=== PATIENT | male | born 1970 | race Caucasian/White ===

== ENCOUNTER 2022-05-29 15:32 | Inpatient (IN) | payer BC, SELFPAY ==
[2022-05-29] VITALS (36 sets, daily range): BP systolic 125–170; BP diastolic 86–112; PULSE 55–74; RESP 20; TEMP 36; O2SAT 87–99; BMI 30.3
[2022-05-29] MEDS: 0.9 % SODIUM CHLORIDE 1000 ml 1,000 ML IV (16:43)
[2022-05-29] MEDS: ONDANSETRON 2 MG/ML inj 4 MG IVP ×2 (16:48→18:50)
[2022-05-29] MEDS: LORazepam 2 MG/ML inj 1 MG IVP ×2 (16:49→20:47)
[2022-05-29 16:59] LABS: Basophils Absolute Auto 0.05 K/uL (0.00-0.30); Basophils Percent Auto 0.5 % (0.0-3.0); Eosinophils Absolute Auto 0.03 K/uL (0.00-0.50); Eosinophils Percent Auto 0.3 % (0.0-7.0); Hematocrit 40.7 % (37.0-53.0); Hemoglobin* 15.6 gm/dL (13.5-17.5); Immature Granulocytes Pct Auto 0.9 %; Lymphocytes Percent Auto 10.4 % (20-44); Mean Corpuscular HGB Conc 38 gm/dL (32-36); Mean Corpuscular Hemoglobin 42 pg (26-34); Mean Corpuscular Volume 111 fL (80-100); Monocytes Percent Auto 5.9 % (0.0-11.0); Platelet Count* 239 K/uL (140-440); RDW Coefficient of Variation % 11.6 % (11.5-15.5); White Blood Count* 10.95 K/uL (4.50-11.00)
[2022-05-29 17:10] LABS: Albumin* 4.5 g/dL (3.3-5.0); Chloride* 85 mmol/L (96-114); Sodium* 125 mmol/L (135-149)
[2022-05-29 17:13] LABS: Alkaline Phosphatase* 219 U/L (40-150); Aspartate Amino Transferase* 198 U/L (12-35); Bilirubin Direct* 1.9 mg/dL (0.0-0.5); Bilirubin Total* 4.6 mg/dL (0.1-1.5); Carbon Dioxide* 29 mmol/L (20-32); Creatinine* 0.6 mg/dL (0.5-1.5); Est. Creatinine Clearance* 142.38; Estimated Glomerular Filt Rate 115 ml/min; Total Protein* 8.2 g/dL (6.0-8.3)
[2022-05-29 17:14] LABS: Alanine Aminotransferase* 83 U/L (4-50); Blood Urea Nitrogen* 9 mg/dL (7-30); Calcium* 8.8 mg/dL (8.4-10.6); Glucose* 106 mg/dL (60-115); Lipase* 283 U/L (23-300)
[2022-05-29 17:16] LABS: C Reactive Protein* 3.3 mg/dL (0.5-1.0)
[2022-05-29 17:18] LABS: PCR FLU A Negative PCR FLU A (Negative); PCR FLU B Negative PCR FLU B (Negative); PCR RSV Negative PCR RSV (Negative)
[2022-05-29 17:23] LABS: SARS PCR* Negative SARS-CoV-2 (Negative)
[2022-05-29 17:24] LABS: Acetaminophen* < 10.0 ug/mL (10.0-30.0); Ethanol* < 0.01 % (0.01-0.03); Potassium* 2.6 mmol/L (3.6-5.1); Salicylate* < 1.0 mg/dL (1.0-10)
[2022-05-29 17:27] LABS: Troponin I* < 0.01 ng/mL (0.01-0.04)
--- NOTE | 2022-05-29 17:30 | CRLHL7_ITS ---
For Patients: As a result of the Century Cures Act, medical imaging exams and procedure reports are released immediately into your electronic medical record. You may view this report before your referring provider. If you have questions, please contact your health care provider. INDICATION: Right upper quadrant abdomen pain. TECHNIQUE: Ultrasound abdomen limited. Sonographic images of the right upper quadrant were obtained using roe-scale and color Doppler images. COMPARISON: CT of abdomen and pelvis from 01/01/2019. FINDINGS: Liver: Heterogeneous echotexture, with increased echogenicity. The medial aspect of the liver is not well visualized, but shows a hypoechoic masslike area. Gallbladder: Layering sludge. The gallbladder wall is mildly thickened measuring 4 mm. Common bile duct: 7 mm. Pancreas: Obscured by overlying bowel gas. Right kidney: Normal in size. Normal echotexture and cortex. No suspicious masses, stones, or hydronephrosis. Vasculature: Proximal abdominal aorta and IVC are unremarkable. IMPRESSION: 1. Heterogeneous appearance of the liver, with masslike appearance medially. This would be better evaluated with CT of the abdomen and pelvis with contrast. 2. Gallbladder sludge and mildly thickened gallbladder wall. No pericholecystic fluid. Dictated by Noman Lopez MD @ 05/29/2022 6:28:56 PM (Electronically Signed)
--- NOTE | 2022-05-29 17:31 | ED.NURSE ---
dr hayden aware of critical potassium of 2.6.
[2022-05-29 17:41] LABS: Slide Review Reflex Yes
[2022-05-29 17:42] LABS: Red Blood Count 3.68 m/uL (4.30-5.90)
[2022-05-29] MEDS: 0.9 % SODIUM CH + KCL 20 mEq/L 1,000 ML 1000 ML IV (17:42)
[2022-05-29 18:21] LABS: Erythrocyte SedimentationRate* 12 mm/hr (2-15)
--- NOTE | 2022-05-29 18:21 | ED_ITS ---
HPI - General Adult General Chief complaint: Alcohol/Intoxication <Sharon Connell MD - Last Filed: 05/29/22 20:11> Stated complaint: Extreme Nausea,Vomiting,Diarrhea <Sharon Connell MD - Last Filed: 05/29/22 20:11> Time Seen by Provider: 05/29/22 16:03 <Sharon Connell MD - Last Filed: 05/29/22 20:11> Source: patient <Sharon Connell MD - Last Filed: 05/29/22 20:11> Mode of arrival: ambulatory <Sharon Connell MD - Last Filed: 05/29/22 20:11> Limitations: no limitations <Sharon Connell MD - Last Filed: 05/29/22 20:11> History of Present Illness HPI narrative: 52-year-old male coming in today complaining of nausea and vomiting. Patient states that last , so 1 week ago, he started feeling nauseated and started vomiting. Patient does have a history of significant alcohol use, drinking approximately 1 L of liquor daily. Because of the nausea vomiting he stop drinking completely on Thursday. He states that the vomiting continues on regular basis. He has eaten anything all day today. He cannot keep anything down including fluids. He denies any fevers or chills. He states that he does have diffuse abdominal discomfort. No diarrhea. No urinary symptoms. No blood in his vomit. He states that he has stopped drinking in the past which resulted in tremens in generalized not feeling well, he denies any seizures in the past. <Sharon Connell MD - Last Filed: 05/29/22 20:11> Related Data Home medications: Home Medications Medication Instructions Recorded Confirmed amlodipine 10 mg tablet 10 mg PO DAILY 05/29/22 05/30/22 ibuprofen 600 mg tablet 600 mg PO Q6H PRN 05/29/22 05/30/22 lisinopril 30 mg tablet 60 mg PO DAILY 05/29/22 05/30/22 venlafaxine 150 mg 150 mg PO DAILY 05/29/22 05/30/22 capsule,extended release 24 hr lansoprazole 30 mg capsule,delayed 30 mg PO BID 05/30/22 05/30/22 release levothyroxine 137 mcg tablet 137 mcg PO DAILY 05/30/22 05/30/22 venlafaxine 75 mg capsule,extended 75 mg PO DAILY 05/30/22 05/30/22 release 24 hr Previous Rx's Medication Instructions Recorded acetaminophen 325 mg tablet 650 mg PO QID PRN #100 tabs 05/31/22 thiamine mononitrate (vit B1) 100 100 mg PO DAILY 30 days #30 tabs 05/31/22 mg tablet (Vitamin B-1 (mononitrate)) <Sharon Connell MD - Last Filed: 05/29/22 20:11> Allergies/adverse reactions: Allergies Allergy/AdvReac Type Severity Reaction Status Date / Time Iodinated Contrast Media Allergy Severe Hives Verified 05/29/22 23:41 <Sharon Connell MD - Last Filed: 05/29/22 20:11> Review of Systems Status of ROS: Reports: 10 or more systems reviewed and unremarkable except as noted in History and below <Sharon Connell MD - Last Filed: 05/29/22 20:11> [facility] Medical History: Medical History (Updated 05/31/22 @ 20:59 by Sonny Juarez MD) Abnormal results of liver function studies Attention deficit disorder Chronic alcoholism Essential hypertension Gastroesophageal reflux disease Generalized anxiety disorder Hepatic steatosis Herniation of intervertebral disc between L4 and L5 Hyperlipidemia Hypothyroidism Obstructive sleep apnea on CPAP <Sharon Connell MD - Last Filed: 05/29/22 20:11> Surgical History: Surgical History Previous back surgery <Sharon Connell MD - Last Filed: 05/29/22 20:11> Social History: Social History Highest level of school completed/degree received: some college, no degree Smoking Status: Former smoker Do you use any of these nicotine containing products: Smokeless Tobacco Second hand tobacco smoke exposure: No How often do you have a drink containing alcohol: 4 or more times a week Alcohol type: hard liquor Alcohol type details: 1 liter vodka daily How many standard drinks containing alcohol do you have on a typical day: 7 to 9 How often do you have six or more drinks on one occasion: Daily or almost daily AUDIT-C Alcohol total score: 11 Non-prescribed substance use: marijuana (any form) Caffeine: Yes service: No <Sharon Connell MD - Last Filed: 05/29/22 20:11> Exam Narrative: Exam Narrative: Overweight patient , appears ill. Alert and oriented x3. Answers questions appropriately. Patient speaks in full sentences without needing to catch his breath. GCS is 15. HEENT: Normocephalic atraumatic. Pupils are equally round reactive to light. Extraocular muscles are intact. Conjunctivae are moist without any icterus noted. Moist mucous membranes. Posterior pharynx is normal. Neck is supple. Patient has some puffiness around his eyes. Cardiovascular: Heart is regular rate and rhythm S1 and S2 are present without any murmurs. Lungs: Clear to auscultation bilaterally no wheezes rhonchi or rales are appreciated. Patient takes deep breaths without any discomfort. Abdomen: Soft and protuberant. He has have a some right upper quadrant and epigastric tenderness. Normal bowel sounds. Extremities: Bilateral lower extremities are without edema. Normal DP and PT pulses. Skin: Well perfused. Warm, dry and intact. <Sharon Connell MD - Last Filed: 05/29/22 20:11> Const: Vital Signs, click to edit/add: Vital Signs - 24 hr 05/29/22 16:04 05/29/22 16:25 05/29/22 16:30 Temperature 96.8 F L Pulse Rate 59 L Pulse Rate [Left P ulse Oximeter] 55 L Respiratory Rate 20 Blood Pressure Blood Pressure [Ri ght Upper Arm] 127/92 H Pulse Oximetry 99 98 87 L Oxygen Delivery Me thod Room Air 05/29/22 16:33 05/29/22 16:45 05/29/22 17:00 Temperature Pulse Rate 58 L 58 L 58 L Pulse Rate [Left P ulse Oximeter] Respiratory Rate Blood Pressure 153/104 H Blood Pressure [Ri ght Upper Arm] Pulse Oximetry 96 98 98 Oxygen Delivery Me thod 05/29/22 17:02 05/29/22 17:03 05/29/22 17:16 Temperature Pulse Rate 65 65 74 Pulse Rate [Left P ulse Oximeter] Respiratory Rate Blood Pressure 170/108 H Blood Pressure [Ri ght Upper Arm] Pulse Oximetry 94 93 97 Oxygen Delivery Nh thod 05/29/22 17:30 05/29/22 17:33 05/29/22 17:34 Temperature Pulse Rate 59 L 62 61 Pulse Rate [Left P ulse Oximeter] Respiratory Rate Blood Pressure 135/88 Blood Pressure [Ri ght Upper Arm] Pulse Oximetry 96 95 95 Oxygen Delivery Me thod 05/29/22 17:45 05/29/22 18:02 05/29/22 18:03 Temperature Pulse Rate 60 60 63 Pulse Rate [Left P ulse Oximeter] Respiratory Rate Blood Pressure 126/112 H Blood Pressure [Ri ght Upper Arm] Pulse Oximetry 98 93 93 Oxygen Delivery Me thod 05/29/22 18:15 05/29/22 18:30 05/29/22 18:34 Temperature Pulse Rate 60 63 Pulse Rate [Left P ulse Oximeter] Respiratory Rate Blood Pressure 145/99 H Blood Pressure [Ri ght Upper Arm] Pulse Oximetry 95 95 Oxygen Delivery Me thod 05/29/22 18:45 05/29/22 19:00 05/29/22 19:02 Temperature Pulse Rate 64 64 69 Pulse Rate [Left P ulse Oximeter] Respiratory Rate Blood Pressure 134/92 H Blood Pressure [Ri ght Upper Arm] Pulse Oximetry 91 93 94 Oxygen Delivery Me thod 05/29/22 19:15 05/29/22 19:30 05/29/22 19:32 Temperature Pulse Rate 65 66 66 Pulse Rate [Left P ulse Oximeter] Respiratory Rate Blood Pressure 145/98 H Blood Pressure [Ri ght Upper Arm] Pulse Oximetry 91 93 92 Oxygen Delivery Me thod 05/29/22 19:45 05/29/22 20:00 05/29/22 20:02 Temperature Pulse Rate 65 67 68 Pulse Rate [Left P ulse Oximeter] Respiratory Rate Blood Pressure 125/97 H Blood Pressure [Ri ght Upper Arm] Pulse Oximetry 91 91 90 Oxygen Delivery Me thod 05/29/22 20:15 05/29/22 20:34 05/29/22 21:03 Temperature Pulse Rate 67 Pulse Rate [Left P ulse Oximeter] Respiratory Rate Blood Pressure 147/93 H 135/97 H Blood Pressure [Ri ght Upper Arm] Pulse Oximetry 88 Oxygen Delivery Me thod 05/29/22 21:32 05/29/22 22:02 05/29/22 22:32 Temperature Pulse Rate Pulse Rate [Left P ulse Oximeter] Respiratory Rate Blood Pressure 138/88 130/89 125/86 Blood Pressure [Ri ght Upper Arm] Pulse Oximetry Oxygen Delivery Me thod 05/29/22 23:02 05/29/22 23:35 05/29/22 23:45 Temperature Pulse Rate 60 60 Pulse Rate [Left P ulse Oximeter] Respiratory Rate Blood Pressure 126/86 Blood Pressure [Ri ght Upper Arm] Pulse Oximetry 90 89 Oxygen Delivery Me thod <Sharon Connell MD - Last Filed: 05/29/22 20:11> Vital Signs, click to edit/add: Vital Signs - 24 hr 05/29/22 16:04 05/29/22 16:25 05/29/22 16:30 Temperature 96.8 F L Pulse Rate 59 L Pulse Rate [Left P ulse Oximeter] 55 L Respiratory Rate 20 Blood Pressure Blood Pressure [Ri ght Upper Arm] 127/92 H Pulse Oximetry 99 98 87 L Oxygen Delivery Me thod Room Air 05/29/22 16:33 05/29/22 16:45 05/29/22 17:00 Temperature Pulse Rate 58 L 58 L 58 L Pulse Rate [Left P ulse Oximeter] Respiratory Rate Blood Pressure 153/104 H Blood Pressure [Ri ght Upper Arm] Pulse Oximetry 96 98 98 Oxygen Delivery Me thod 05/29/22 17:02 05/29/22 17:03 05/29/22 17:16 Temperature Pulse Rate 65 65 74 Pulse Rate [Left P ulse Oximeter] Respiratory Rate Blood Pressure 170/108 H Blood Pressure [Ri ght Upper Arm] Pulse Oximetry 94 93 97 Oxygen Delivery Me thod 05/29/22 17:30 05/29/22 17:33 05/29/22 17:34 Temperature Pulse Rate 59 L 62 61 Pulse Rate [Left P ulse Oximeter] Respiratory Rate Blood Pressure 135/88 Blood Pressure [Ri ght Upper Arm] Pulse Oximetry 96 95 95 Oxygen Delivery Me thod 05/29/22 17:45 05/29/22 18:02 05/29/22 18:03 Temperature Pulse Rate 60 60 63 Pulse Rate [Left P ulse Oximeter] Respiratory Rate Blood Pressure 126/112 H Blood Pressure [Ri ght Upper Arm] Pulse Oximetry 98 93 93 Oxygen Delivery Me thod 05/29/22 18:15 05/29/22 18:30 05/29/22 18:34 Temperature Pulse Rate 60 63 Pulse Rate [Left P ulse Oximeter] Respiratory Rate Blood Pressure 145/99 H Blood Pressure [Ri ght Upper Arm] Pulse Oximetry 95 95 Oxygen Delivery Me thod 05/29/22 18:45 05/29/22 19:00 05/29/22 19:02 Temperature Pulse Rate 64 64 69 Pulse Rate [Left P ulse Oximeter] Respiratory Rate Blood Pressure 134/92 H Blood Pressure [Ri ght Upper Arm] Pulse Oximetry 91 93 94 Oxygen Delivery Me thod 05/29/22 19:15 05/29/22 19:30 05/29/22 19:32 Temperature Pulse Rate 65 66 66 Pulse Rate [Left P ulse Oximeter] Respiratory Rate Blood Pressure 145/98 H Blood Pressure [Ri ght Upper Arm] Pulse Oximetry 91 93 92 Oxygen Delivery Me thod 05/29/22 19:45 05/29/22 20:00 05/29/22 20:02 Temperature Pulse Rate 65 67 68 Pulse Rate [Left P ulse Oximeter] Respiratory Rate Blood Pressure 125/97 H Blood Pressure [Ri ght Upper Arm] Pulse Oximetry 91 91 90 Oxygen Delivery Me thod 05/29/22 20:15 05/29/22 20:34 05/29/22 21:03 Temperature Pulse Rate 67 Pulse Rate [Left P ulse Oximeter] Respiratory Rate Blood Pressure 147/93 H 135/97 H Blood Pressure [Ri ght Upper Arm] Pulse Oximetry 88 Oxygen Delivery Me thod 05/29/22 21:32 05/29/22 22:02 05/29/22 22:32 Temperature Pulse Rate Pulse Rate [Left P ulse Oximeter] Respiratory Rate Blood Pressure 138/88 130/89 125/86 Blood Pressure [Ri ght Upper Arm] Pulse Oximetry Oxygen Delivery Me thod 05/29/22 23:02 05/29/22 23:35 05/29/22 23:45 Temperature Pulse Rate 60 60 Pulse Rate [Left P ulse Oximeter] Respiratory Rate Blood Pressure 126/86 Blood Pressure [Ri ght Upper Arm] Pulse Oximetry 90 89 Oxygen Delivery Me thod <Joe Dias MD - Last Filed: 05/30/22 00:43> Course Course Hospital Course: IV was started and patient received a L of normal saline, Zofran and 1 mg of Ativan. Labs were done which showed elevated LFTs, normal lipase, hyponatremia and hypokalemia. A 2 L was started with 20 mEq of potassium. Abdominal ultrasound performed of the right upper quadrant: Results below. CT of the abdomen was recommended however, patient is allergic to dye so a 4 hour protocol was initiated. 3 L was started with potassium at maintenance rates. Patient received a another dose of Zofran and another dose of 0.5 mg of Ativan for worsening nausea. Admission was initiated: We do not have any beds available at [facility], there are no available beds anywhere in the [facility] that could accept this patient. Therefore patient will remain in the ER for the time being. Care transferred to oncoming physician. <Sharon Connell MD - Last Filed: 05/29/22 20:11> Reevaluation(s) Reevaluation #1: I spoke with WILLIAM who agrees to admit the patient for hyponatremia, hypokalemia, alcohol withdrawal. He will be transferred to [facility] in stable condition. <Joe Dias MD - Last Filed: 05/30/22 00:43> Vital Signs Vital signs: Initial Vital Signs Temperature 96.8 F L 05/29/22 16:04 Temperature Source Temporal Artery Scan 05/29/22 16:04 Pulse Rate 55 L 05/29/22 16:04 Pulse Rhythm 05/29/22 16:04 Pulse Strength 3+ Normal 05/29/22 16:04 Respiratory Rate 20 05/29/22 16:04 Blood Pressure 127/92 H 05/29/22 16:04 Blood Pressure Mean 103 05/29/22 16:04 Blood Pressure Position Sitting 05/29/22 16:04 Pulse Oximetry 99 05/29/22 16:04 Oxygen Delivery Method 05/29/22 16:04 Vital Signs Temperature 96.8 F L 05/29/22 16:04 Pulse Rate 55 L 05/29/22 16:04 Respiratory Rate 20 05/29/22 16:04 Blood Pressure 127/92 H 05/29/22 16:04 Pulse Oximetry 99 05/29/22 16:04 Oxygen Delivery Method 05/29/22 16:04 Temperature 97.4 F L 05/31/22 12:00 Pulse Rate 67 05/31/22 12:00 Respiratory Rate 18 05/31/22 12:00 Blood Pressure 150/102 H 05/31/22 12:00 Pulse Oximetry 95 05/31/22 12:00 Oxygen Delivery Method 05/31/22 12:00 <Sharon Connell MD - Last Filed: 05/29/22 20:11> Initial Vital Signs Temperature 96.8 F L 05/29/22 16:04 Temperature Source Temporal Artery Scan 05/29/22 16:04 Pulse Rate 55 L 05/29/22 16:04 Pulse Rhythm 05/29/22 16:04 Pulse Strength 3+ Normal 05/29/22 16:04 Respiratory Rate 20 05/29/22 16:04 Blood Pressure 127/92 H 05/29/22 16:04 Blood Pressure Mean 103 05/29/22 16:04 Blood Pressure Position Sitting 05/29/22 16:04 Pulse Oximetry 99 05/29/22 16:04 Oxygen Delivery Method 05/29/22 16:04 Vital Signs Temperature 96.8 F L 05/29/22 16:04 Pulse Rate 55 L 05/29/22 16:04 Respiratory Rate 20 05/29/22 16:04 Blood Pressure 127/92 H 05/29/22 16:04 Pulse Oximetry 99 05/29/22 16:04 Oxygen Delivery Method 05/29/22 16:04 Temperature 97.4 F L 05/31/22 12:00 Pulse Rate 67 05/31/22 12:00 Respiratory Rate 18 05/31/22 12:00 Blood Pressure 150/102 H 05/31/22 12:00 Pulse Oximetry 95 05/31/22 12:00 Oxygen Delivery Method 05/31/22 12:00 <Joe Dias MD - Last Filed: 05/30/22 00:43> Medical Decision Making Lab Data Lab results reviewed: Yes I reviewed the patient's lab results <Sharon Connell MD - Last Filed: 05/29/22 20:11> Labs: Lab Results 05/29/22 05/29/22 05/29/22 Range/Units 16:00 16:40 16:40 WBC 10.95 (4.50-11.00) K/uL RBC 3.68 L (4.30-5.90) m/uL Hgb 15.6 (13.5-17.5) gm/dL Hct 40.7 (37.0-53.0) % MCV 111 H (80-100) fL MCH 42 H (26-34) pg MCHC 38 H (32-36) gm/dL RDW Coeff of Vladislav 11.6 (11.5-15.5) % Plt Count 239 (140-440) K/uL Neut % (Auto) 82.0 H (42.0-72.0) % Lymph % (Auto) 10.4 L (20-44) % [place] % (Auto) 5.9 (0.0-11.0) % Eos % (Auto) 0.3 (0.0-7.0) % Baso % (Auto) 0.5 (0.0-3.0) % Neut # (Auto) 9.00 H (1.7-7.0) K/uL Lymph # (Auto) 1.10 (0.90-2.90) K/uL [place] # (Auto) 0.60 (0.00-0.90) K/UL Eos # (Auto) 0.03 (0.00-0.50) K/uL Baso # (Auto) 0.05 (0.00-0.30) K/uL Abs Immat Gran (auto) 0.10 (0.00-0.30) K/uL Imm/Tot Granulo (auto) 0.9 % Diff Slide Review Acceptable Review (Acceptable) ESR 12 (2-15) mm/hr Sodium (135-149) mmol/L Potassium (3.6-5.1) mmol/L Chloride (96-114) mmol/L Carbon Dioxide (20-32) mmol/L BUN (7-30) mg/dL Creatinine (0.5-1.5) mg/dL Estimated Creat Clear Estimated GFR ml/min Glucose (60-115) mg/dL Lactate (0.5-1.9) mmol/L Calcium (8.4-10.6) mg/dL Phosphorus (2.5-4.5) mg/dL Magnesium (1.5-2.6) mg/dL Total Bilirubin (0.1-1.5) mg/dL Direct Bilirubin (0.0-0.5) mg/dL AST (12-35) U/L ALT (4-50) U/L Alkaline Phosphatase (40-150) U/L Troponin I (0.01-0.04) ng/mL C-Reactive Protein (0.5-1.0) mg/dL Total Protein (6.0-8.3) g/dL Albumin (3.3-5.0) g/dL Lipase (23-300) U/L Urine Color (Yellow) Urine Appearance (Clear) Urine pH (5.0-8.5) Ur Specific [place] (1.000-1.030) Urine Protein (Negative) Urine Glucose (UA) (Negative) Urine Ketones (Negative) Urine Blood (Negative) Urine Nitrite (Negative) Urine Bilirubin (Negative) Urine Urobilinogen (0.2-1.0) Ur Leukocyte Esterase (Negative) Urine RBC (0-2) Urine WBC (0-5) Ur Squamous Epith Cells (None-Few) Amorphous Sediment (None) Urine Bacteria (None) Salicylates (1.0-10) mg/dL Urine Opiates Screen (Negative) Ur Oxycodone Screen (Negative) Urine Methadone Screen (Negative) Ur Propoxyphene Screen (Negative) Acetaminophen (10.0-30.0) ug/mL Ur Barbiturates Screen (Negative) U Tricyclic Antidepress (Negative) Ur Phencyclidine Scrn (Negative) Ur Amphetamines Screen (Negative) U Methamphetamines Scrn (Negative) U Benzodiazepines Scrn (Negative) Urine Cocaine Screen (Negative) U Marijuana (THC) Screen (Negative) Ur Drug Screen Comment Ethyl Alcohol (0.01-0.03) % SARS-CoV-2 (PCR) Negative SARS-CoV-2 (Negative) Influenza Type A (PCR) Negative PCR FLU A (Negative) Influenza Type B (PCR) Negative PCR FLU B (Negative) RSV (PCR) Negative PCR RSV (Negative) 05/29/22 05/29/22 05/29/22 Range/Units 16:40 16:40 16:40 WBC (4.50-11.00) K/uL RBC (4.30-5.90) m/uL Hgb (13.5-17.5) gm/dL Hct (37.0-53.0) % MCV (80-100) fL MCH (26-34) pg MCHC (32-36) gm/dL RDW Coeff of Vladislav (11.5-15.5) % Plt Count (140-440) K/uL Neut % (Auto) (42.0-72.0) % Lymph % (Auto) (20-44) % [place] % (Auto) (0.0-11.0) % Eos % (Auto) (0.0-7.0) % Baso % (Auto) (0.0-3.0) % Neut # (Auto) (1.7-7.0) K/uL Lymph # (Auto) (0.90-2.90) K/uL [place] # (Auto) (0.00-0.90) K/UL Eos # (Auto) (0.00-0.50) K/uL Baso # (Auto) (0.00-0.30) K/uL Abs Immat Gran (auto) (0.00-0.30) K/uL Imm/Tot Granulo (auto) % Diff Slide Review (Acceptable) ESR (2-15) mm/hr Sodium 125 L (135-149) mmol/L Potassium 2.6 L* (3.6-5.1) mmol/L Chloride 85 L (96-114) mmol/L Carbon Dioxide 29 (20-32) mmol/L BUN 9 (7-30) mg/dL Creatinine 0.6 (0.5-1.5) mg/dL Estimated Creat Clear 142.38 Estimated GFR 115 ml/min Glucose 106 (60-115) mg/dL Lactate 2.0 H (0.5-1.9) mmol/L Calcium 8.8 (8.4-10.6) mg/dL Phosphorus (2.5-4.5) mg/dL Magnesium (1.5-2.6) mg/dL Total Bilirubin 4.6 H (0.1-1.5) mg/dL Direct Bilirubin 1.9 H (0.0-0.5) mg/dL AST 198 H (12-35) U/L ALT 83 H (4-50) U/L Alkaline Phosphatase 219 H (40-150) U/L Troponin I < 0.01 L Cancelled (0.01-0.04) ng/mL C-Reactive Protein 3.3 H (0.5-1.0) mg/dL Total Protein 8.2 (6.0-8.3) g/dL Albumin 4.5 (3.3-5.0) g/dL Lipase 283 (23-300) U/L Urine Color (Yellow) Urine Appearance (Clear) Urine pH (5.0-8.5) Ur Specific [place] (1.000-1.030) Urine Protein (Negative) Urine Glucose (UA) (Negative) Urine Ketones (Negative) Urine Blood (Negative) Urine Nitrite (Negative) Urine Bilirubin (Negative) Urine Urobilinogen (0.2-1.0) Ur Leukocyte Esterase (Negative) Urine RBC (0-2) Urine WBC (0-5) Ur Squamous Epith Cells (None-Few) Amorphous Sediment (None) Urine Bacteria (None) Salicylates < 1.0 L (1.0-10) mg/dL Urine Opiates Screen (Negative) Ur Oxycodone Screen (Negative) Urine Methadone Screen (Negative) Ur Propoxyphene Screen (Negative) Acetaminophen < 10.0 L (10.0-30.0) ug/mL Ur Barbiturates Screen (Negative) U Tricyclic Antidepress (Negative) Ur Phencyclidine Scrn (Negative) Ur Amphetamines Screen (Negative) U Methamphetamines Scrn (Negative) U Benzodiazepines Scrn (Negative) Urine Cocaine Screen (Negative) U Marijuana (THC) Screen (Negative) Ur Drug Screen Comment Ethyl Alcohol < 0.01 L (0.01-0.03) % SARS-CoV-2 (PCR) (Negative) Influenza Type A (PCR) (Negative) Influenza Type B (PCR) (Negative) RSV (PCR) (Negative) 05/29/22 05/29/22 05/29/22 Range/Units 16:40 20:30 20:30 WBC (4.50-11.00) K/uL RBC (4.30-5.90) m/uL Hgb (13.5-17.5) gm/dL Hct (37.0-53.0) % MCV (80-100) fL MCH (26-34) pg MCHC (32-36) gm/dL RDW Coeff of Vladislav (11.5-15.5) % Plt Count (140-440) K/uL Neut % (Auto) (42.0-72.0) % Lymph % (Auto) (20-44) % [place] % (Auto) (0.0-11.0) % Eos % (Auto) (0.0-7.0) % Baso % (Auto) (0.0-3.0) % Neut # (Auto) (1.7-7.0) K/uL Lymph # (Auto) (0.90-2.90) K/uL [place] # (Auto) (0.00-0.90) K/UL Eos # (Auto) (0.00-0.50) K/uL Baso # (Auto) (0.00-0.30) K/uL Abs Immat Gran (auto) (0.00-0.30) K/uL Imm/Tot Granulo (auto) % Diff Slide Review (Acceptable) ESR (2-15) mm/hr Sodium (135-149) mmol/L Potassium (3.6-5.1) mmol/L Chloride (96-114) mmol/L Carbon Dioxide (20-32) mmol/L BUN (7-30) mg/dL Creatinine (0.5-1.5) mg/dL Estimated Creat Clear Estimated GFR ml/min Glucose (60-115) mg/dL Lactate (0.5-1.9) mmol/L Calcium (8.4-10.6) mg/dL Phosphorus (2.5-4.5) mg/dL Magnesium 1.9 (1.5-2.6) mg/dL Total Bilirubin (0.1-1.5) mg/dL Direct Bilirubin (0.0-0.5) mg/dL AST (12-35) U/L ALT (4-50) U/L Alkaline Phosphatase (40-150) U/L Troponin I (0.01-0.04) ng/mL C-Reactive Protein (0.5-1.0) mg/dL Total Protein (6.0-8.3) g/dL Albumin (3.3-5.0) g/dL Lipase (23-300) U/L Urine Color [place] A (Yellow) Urine Appearance Clear (Clear) Urine pH 7.0 (5.0-8.5) Ur Specific [place] 1.015 (1.000-1.030) Urine Protein Negative (Negative) Urine Glucose (UA) Negative (Negative) Urine Ketones 2+ A (Negative) Urine Blood Negative (Negative) Urine Nitrite Negative (Negative) Urine Bilirubin 1+ A (Negative) Urine Urobilinogen 2.0 A (0.2-1.0) Ur Leukocyte Esterase Negative (Negative) Urine RBC 0-2 (0-2) Urine WBC 0-2 (0-5) Ur Squamous Epith Cells Few (None-Few) Amorphous Sediment Few A (None) Urine Bacteria None (None) Salicylates (1.0-10) mg/dL Urine Opiates Screen Negative (Negative) Ur Oxycodone Screen Negative (Negative) Urine Methadone Screen Negative (Negative) Ur Propoxyphene Screen Negative (Negative) Acetaminophen (10.0-30.0) ug/mL Ur Barbiturates Screen Negative (Negative) U Tricyclic Antidepress Negative (Negative) Ur Phencyclidine Scrn Negative (Negative) Ur Amphetamines Screen Negative (Negative) U Methamphetamines Scrn Negative (Negative) U Benzodiazepines Scrn Negative (Negative) Urine Cocaine Screen Negative (Negative) U Marijuana (THC) Screen POSITIVE A* (Negative) Ur Drug Screen Comment See Note Ethyl Alcohol (0.01-0.03) % SARS-CoV-2 (PCR) (Negative) Influenza Type A (PCR) (Negative) Influenza Type B (PCR) (Negative) RSV (PCR) (Negative) 05/30/22 05/30/22 05/30/22 Range/Units 07:06 07:06 07:06 WBC 9.27 (4.50-11.00) K/uL RBC 3.12 L (4.30-5.90) m/uL Hgb 13.5 (13.5-17.5) gm/dL Hct 35.6 L (37.0-53.0) % MCV 114 H (80-100) fL MCH 43 H (26-34) pg MCHC 38 H (32-36) gm/dL RDW Coeff of Vladislav 11.7 (11.5-15.5) % Plt Count 207 (140-440) K/uL Neut % (Auto) 76.3 H (42.0-72.0) % Lymph % (Auto) 16.6 L (20-44) % [place] % (Auto) 6.0 (0.0-11.0) % Eos % (Auto) 0.1 (0.0-7.0) % Baso % (Auto) 0.2 (0.0-3.0) % Neut # (Auto) 7.10 H (1.7-7.0) K/uL Lymph # (Auto) 1.50 (0.90-2.90) K/uL [place] # (Auto) 0.60 (0.00-0.90) K/UL Eos # (Auto) 0.01 (0.00-0.50) K/uL Baso # (Auto) 0.02 (0.00-0.30) K/uL Abs Immat Gran (auto) 0.07 (0.00-0.30) K/uL Imm/Tot Granulo (auto) 0.8 % Diff Slide Review (Acceptable) ESR (2-15) mm/hr Sodium 130 L (135-149) mmol/L Potassium 3.3 L (3.6-5.1) mmol/L Chloride 96 (96-114) mmol/L Carbon Dioxide 26 (20-32) mmol/L BUN 8 (7-30) mg/dL Creatinine 0.6 (0.5-1.5) mg/dL Estimated Creat Clear 142.38 Estimated GFR 115 ml/min Glucose 94 (60-115) mg/dL Lactate 1.2 (0.5-1.9) mmol/L Calcium 7.8 L (8.4-10.6) mg/dL Phosphorus 4.0 (2.5-4.5) mg/dL Magnesium 2.7 H (1.5-2.6) mg/dL Total Bilirubin 2.9 H (0.1-1.5) mg/dL Direct Bilirubin 1.5 H (0.0-0.5) mg/dL AST 144 H (12-35) U/L ALT 76 H (4-50) U/L Alkaline Phosphatase 171 H (40-150) U/L Troponin I (0.01-0.04) ng/mL C-Reactive Protein (0.5-1.0) mg/dL Total Protein 6.9 (6.0-8.3) g/dL Albumin 3.7 (3.3-5.0) g/dL Lipase (23-300) U/L Urine Color (Yellow) Urine Appearance (Clear) Urine pH (5.0-8.5) Ur Specific [place] (1.000-1.030) Urine Protein (Negative) Urine Glucose (UA) (Negative) Urine Ketones (Negative) Urine Blood (Negative) Urine Nitrite (Negative) Urine Bilirubin (Negative) Urine Urobilinogen (0.2-1.0) Ur Leukocyte Esterase (Negative) Urine RBC (0-2) Urine WBC (0-5) Ur Squamous Epith Cells (None-Few) Amorphous Sediment (None) Urine Bacteria (None) Salicylates (1.0-10) mg/dL Urine Opiates Screen (Negative) Ur Oxycodone Screen (Negative) Urine Methadone Screen (Negative) Ur Propoxyphene Screen (Negative) Acetaminophen (10.0-30.0) ug/mL Ur Barbiturates Screen (Negative) U Tricyclic Antidepress (Negative) Ur Phencyclidine Scrn (Negative) Ur Amphetamines Screen (Negative) U Methamphetamines Scrn (Negative) U Benzodiazepines Scrn (Negative) Urine Cocaine Screen (Negative) U Marijuana (THC) Screen (Negative) Ur Drug Screen Comment Ethyl Alcohol (0.01-0.03) % SARS-CoV-2 (PCR) (Negative) Influenza Type A (PCR) (Negative) Influenza Type B (PCR) (Negative) RSV (PCR) (Negative) <Sharon Connell MD - Last Filed: 05/29/22 20:11> Lab Results 05/29/22 05/29/22 05/29/22 Range/Units 16:00 16:40 16:40 WBC 10.95 (4.50-11.00) K/uL RBC 3.68 L (4.30-5.90) m/uL Hgb 15.6 (13.5-17.5) gm/dL Hct 40.7 (37.0-53.0) % MCV 111 H (80-100) fL MCH 42 H (26-34) pg MCHC 38 H (32-36) gm/dL RDW Coeff of Vladislav 11.6 (11.5-15.5) % Plt Count 239 (140-440) K/uL Neut % (Auto) 82.0 H (42.0-72.0) % Lymph % (Auto) 10.4 L (20-44) % [place] % (Auto) 5.9 (0.0-11.0) % Eos % (Auto) 0.3 (0.0-7.0) % Baso % (Auto) 0.5 (0.0-3.0) % Neut # (Auto) 9.00 H (1.7-7.0) K/uL Lymph # (Auto) 1.10 (0.90-2.90) K/uL [place] # (Auto) 0.60 (0.00-0.90) K/UL Eos # (Auto) 0.03 (0.00-0.50) K/uL Baso # (Auto) 0.05 (0.00-0.30) K/uL Abs Immat Gran (auto) 0.10 (0.00-0.30) K/uL Imm/Tot Granulo (auto) 0.9 % Diff Slide Review Acceptable Review (Acceptable) ESR 12 (2-15) mm/hr Sodium (135-149) mmol/L Potassium (3.6-5.1) mmol/L Chloride (96-114) mmol/L Carbon Dioxide (20-32) mmol/L BUN (7-30) mg/dL Creatinine (0.5-1.5) mg/dL Estimated Creat Clear Estimated GFR ml/min Glucose (60-115) mg/dL Lactate (0.5-1.9) mmol/L Calcium (8.4-10.6) mg/dL Phosphorus (2.5-4.5) mg/dL Magnesium (1.5-2.6) mg/dL Total Bilirubin (0.1-1.5) mg/dL Direct Bilirubin (0.0-0.5) mg/dL AST (12-35) U/L ALT (4-50) U/L Alkaline Phosphatase (40-150) U/L Troponin I (0.01-0.04) ng/mL C-Reactive Protein (0.5-1.0) mg/dL Total Protein (6.0-8.3) g/dL Albumin (3.3-5.0) g/dL Lipase (23-300) U/L Urine Color (Yellow) Urine Appearance (Clear) Urine pH (5.0-8.5) Ur Specific [place] (1.000-1.030) Urine Protein (Negative) Urine Glucose (UA) (Negative) Urine Ketones (Negative) Urine Blood (Negative) Urine Nitrite (Negative) Urine Bilirubin (Negative) Urine Urobilinogen (0.2-1.0) Ur Leukocyte Esterase (Negative) Urine RBC (0-2) Urine WBC (0-5) Ur Squamous Epith Cells (None-Few) Amorphous Sediment (None) Urine Bacteria (None) Salicylates (1.0-10) mg/dL Urine Opiates Screen (Negative) Ur Oxycodone Screen (Negative) Urine Methadone Screen (Negative) Ur Propoxyphene Screen (Negative) Acetaminophen (10.0-30.0) ug/mL Ur Barbiturates Screen (Negative) U Tricyclic Antidepress (Negative) Ur Phencyclidine Scrn (Negative) Ur Amphetamines Screen (Negative) U Methamphetamines Scrn (Negative) U Benzodiazepines Scrn (Negative) Urine Cocaine Screen (Negative) U Marijuana (THC) Screen (Negative) Ur Drug Screen Comment Ethyl Alcohol (0.01-0.03) % SARS-CoV-2 (PCR) Negative SARS-CoV-2 (Negative) Influenza Type A (PCR) Negative PCR FLU A (Negative) Influenza Type B (PCR) Negative PCR FLU B (Negative) RSV (PCR) Negative PCR RSV (Negative) 05/29/22 05/29/22 05/29/22 Range/Units 16:40 16:40 16:40 WBC (4.50-11.00) K/uL RBC (4.30-5.90) m/uL Hgb (13.5-17.5) gm/dL Hct (37.0-53.0) % MCV (80-100) fL MCH (26-34) pg MCHC (32-36) gm/dL RDW Coeff of Vladislav (11.5-15.5) % Plt Count (140-440) K/uL Neut % (Auto) (42.0-72.0) % Lymph % (Auto) (20-44) % [place] % (Auto) (0.0-11.0) % Eos % (Auto) (0.0-7.0) % Baso % (Auto) (0.0-3.0) % Neut # (Auto) (1.7-7.0) K/uL Lymph # (Auto) (0.90-2.90) K/uL [place] # (Auto) (0.00-0.90) K/UL Eos # (Auto) (0.00-0.50) K/uL Baso # (Auto) (0.00-0.30) K/uL Abs Immat Gran (auto) (0.00-0.30) K/uL Imm/Tot Granulo (auto) % Diff Slide Review (Acceptable) ESR (2-15) mm/hr Sodium 125 L (135-149) mmol/L Potassium 2.6 L* (3.6-5.1) mmol/L Chloride 85 L (96-114) mmol/L Carbon Dioxide 29 (20-32) mmol/L BUN 9 (7-30) mg/dL Creatinine 0.6 (0.5-1.5) mg/dL Estimated Creat Clear 142.38 Estimated GFR 115 ml/min Glucose 106 (60-115) mg/dL Lactate 2.0 H (0.5-1.9) mmol/L Calcium 8.8 (8.4-10.6) mg/dL Phosphorus (2.5-4.5) mg/dL Magnesium (1.5-2.6) mg/dL Total Bilirubin 4.6 H (0.1-1.5) mg/dL Direct Bilirubin 1.9 H (0.0-0.5) mg/dL AST 198 H (12-35) U/L ALT 83 H (4-50) U/L Alkaline Phosphatase 219 H (40-150) U/L Troponin I < 0.01 L Cancelled (0.01-0.04) ng/mL C-Reactive Protein 3.3 H (0.5-1.0) mg/dL Total Protein 8.2 (6.0-8.3) g/dL Albumin 4.5 (3.3-5.0) g/dL Lipase 283 (23-300) U/L Urine Color (Yellow) Urine Appearance (Clear) Urine pH (5.0-8.5) Ur Specific [place] (1.000-1.030) Urine Protein (Negative) Urine Glucose (UA) (Negative) Urine Ketones (Negative) Urine Blood (Negative) Urine Nitrite (Negative) Urine Bilirubin (Negative) Urine Urobilinogen (0.2-1.0) Ur Leukocyte Esterase (Negative) Urine RBC (0-2) Urine WBC (0-5) Ur Squamous Epith Cells (None-Few) Amorphous Sediment (None) Urine Bacteria (None) Salicylates < 1.0 L (1.0-10) mg/dL Urine Opiates Screen (Negative) Ur Oxycodone Screen (Negative) Urine Methadone Screen (Negative) Ur Propoxyphene Screen (Negative) Acetaminophen < 10.0 L (10.0-30.0) ug/mL Ur Barbiturates Screen (Negative) U Tricyclic Antidepress (Negative) Ur Phencyclidine Scrn (Negative) Ur Amphetamines Screen (Negative) U Methamphetamines Scrn (Negative) U Benzodiazepines Scrn (Negative) Urine Cocaine Screen (Negative) U Marijuana (THC) Screen (Negative) Ur Drug Screen Comment Ethyl Alcohol < 0.01 L (0.01-0.03) % SARS-CoV-2 (PCR) (Negative) Influenza Type A (PCR) (Negative) Influenza Type B (PCR) (Negative) RSV (PCR) (Negative) 05/29/22 05/29/22 05/29/22 Range/Units 16:40 20:30 20:30 WBC (4.50-11.00) K/uL RBC (4.30-5.90) m/uL Hgb (13.5-17.5) gm/dL Hct (37.0-53.0) % MCV (80-100) fL MCH (26-34) pg MCHC (32-36) gm/dL RDW Coeff of Vladislav (11.5-15.5) % Plt Count (140-440) K/uL Neut % (Auto) (42.0-72.0) % Lymph % (Auto) (20-44) % [place] % (Auto) (0.0-11.0) % Eos % (Auto) (0.0-7.0) % Baso % (Auto) (0.0-3.0) % Neut # (Auto) (1.7-7.0) K/uL Lymph # (Auto) (0.90-2.90) K/uL [place] # (Auto) (0.00-0.90) K/UL Eos # (Auto) (0.00-0.50) K/uL Baso # (Auto) (0.00-0.30) K/uL Abs Immat Gran (auto) (0.00-0.30) K/uL Imm/Tot Granulo (auto) % Diff Slide Review (Acceptable) ESR (2-15) mm/hr Sodium (135-149) mmol/L Potassium (3.6-5.1) mmol/L Chloride (96-114) mmol/L Carbon Dioxide (20-32) mmol/L BUN (7-30) mg/dL Creatinine (0.5-1.5) mg/dL Estimated Creat Clear Estimated GFR ml/min Glucose (60-115) mg/dL Lactate (0.5-1.9) mmol/L Calcium (8.4-10.6) mg/dL Phosphorus (2.5-4.5) mg/dL Magnesium 1.9 (1.5-2.6) mg/dL Total Bilirubin (0.1-1.5) mg/dL Direct Bilirubin (0.0-0.5) mg/dL AST (12-35) U/L ALT (4-50) U/L Alkaline Phosphatase (40-150) U/L Troponin I (0.01-0.04) ng/mL C-Reactive Protein (0.5-1.0) mg/dL Total Protein (6.0-8.3) g/dL Albumin (3.3-5.0) g/dL Lipase (23-300) U/L Urine Color [place] A (Yellow) Urine Appearance Clear (Clear) Urine pH 7.0 (5.0-8.5) Ur Specific [place] 1.015 (1.000-1.030) Urine Protein Negative (Negative) Urine Glucose (UA) Negative (Negative) Urine Ketones 2+ A (Negative) Urine Blood Negative (Negative) Urine Nitrite Negative (Negative) Urine Bilirubin 1+ A (Negative) Urine Urobilinogen 2.0 A (0.2-1.0) Ur Leukocyte Esterase Negative (Negative) Urine RBC 0-2 (0-2) Urine WBC 0-2 (0-5) Ur Squamous Epith Cells Few (None-Few) Amorphous Sediment Few A (None) Urine Bacteria None (None) Salicylates (1.0-10) mg/dL Urine Opiates Screen Negative (Negative) Ur Oxycodone Screen Negative (Negative) Urine Methadone Screen Negative (Negative) Ur Propoxyphene Screen Negative (Negative) Acetaminophen (10.0-30.0) ug/mL Ur Barbiturates Screen Negative (Negative) U Tricyclic Antidepress Negative (Negative) Ur Phencyclidine Scrn Negative (Negative) Ur Amphetamines Screen Negative (Negative) U Methamphetamines Scrn Negative (Negative) U Benzodiazepines Scrn Negative (Negative) Urine Cocaine Screen Negative (Negative) U Marijuana (THC) Screen POSITIVE A* (Negative) Ur Drug Screen Comment See Note Ethyl Alcohol (0.01-0.03) % SARS-CoV-2 (PCR) (Negative) Influenza Type A (PCR) (Negative) Influenza Type B (PCR) (Negative) RSV (PCR) (Negative) 05/30/22 05/30/22 05/30/22 Range/Units 07:06 07:06 07:06 WBC 9.27 (4.50-11.00) K/uL RBC 3.12 L (4.30-5.90) m/uL Hgb 13.5 (13.5-17.5) gm/dL Hct 35.6 L (37.0-53.0) % MCV 114 H (80-100) fL MCH 43 H (26-34) pg MCHC 38 H (32-36) gm/dL RDW Coeff of Vladislav 11.7 (11.5-15.5) % Plt Count 207 (140-440) K/uL Neut % (Auto) 76.3 H (42.0-72.0) % Lymph % (Auto) 16.6 L (20-44) % [place] % (Auto) 6.0 (0.0-11.0) % Eos % (Auto) 0.1 (0.0-7.0) % Baso % (Auto) 0.2 (0.0-3.0) % Neut # (Auto) 7.10 H (1.7-7.0) K/uL Lymph # (Auto) 1.50 (0.90-2.90) K/uL [place] # (Auto) 0.60 (0.00-0.90) K/UL Eos # (Auto) 0.01 (0.00-0.50) K/uL Baso # (Auto) 0.02 (0.00-0.30) K/uL Abs Immat Gran (auto) 0.07 (0.00-0.30) K/uL Imm/Tot Granulo (auto) 0.8 % Diff Slide Review (Acceptable) ESR (2-15) mm/hr Sodium 130 L (135-149) mmol/L Potassium 3.3 L (3.6-5.1) mmol/L Chloride 96 (96-114) mmol/L Carbon Dioxide 26 (20-32) mmol/L BUN 8 (7-30) mg/dL Creatinine 0.6 (0.5-1.5) mg/dL Estimated Creat Clear 142.38 Estimated GFR 115 ml/min Glucose 94 (60-115) mg/dL Lactate 1.2 (0.5-1.9) mmol/L Calcium 7.8 L (8.4-10.6) mg/dL Phosphorus 4.0 (2.5-4.5) mg/dL Magnesium 2.7 H (1.5-2.6) mg/dL Total Bilirubin 2.9 H (0.1-1.5) mg/dL Direct Bilirubin 1.5 H (0.0-0.5) mg/dL AST 144 H (12-35) U/L ALT 76 H (4-50) U/L Alkaline Phosphatase 171 H (40-150) U/L Troponin I (0.01-0.04) ng/mL C-Reactive Protein (0.5-1.0) mg/dL Total Protein 6.9 (6.0-8.3) g/dL Albumin 3.7 (3.3-5.0) g/dL Lipase (23-300) U/L Urine Color (Yellow) Urine Appearance (Clear) Urine pH (5.0-8.5) Ur Specific [place] (1.000-1.030) Urine Protein (Negative) Urine Glucose (UA) (Negative) Urine Ketones (Negative) Urine Blood (Negative) Urine Nitrite (Negative) Urine Bilirubin (Negative) Urine Urobilinogen (0.2-1.0) Ur Leukocyte Esterase (Negative) Urine RBC (0-2) Urine WBC (0-5) Ur Squamous Epith Cells (None-Few) Amorphous Sediment (None) Urine Bacteria (None) Salicylates (1.0-10) mg/dL Urine Opiates Screen (Negative) Ur Oxycodone Screen (Negative) Urine Methadone Screen (Negative) Ur Propoxyphene Screen (Negative) Acetaminophen (10.0-30.0) ug/mL Ur Barbiturates Screen (Negative) U Tricyclic Antidepress (Negative) Ur Phencyclidine Scrn (Negative) Ur Amphetamines Screen (Negative) U Methamphetamines Scrn (Negative) U Benzodiazepines Scrn (Negative) Urine Cocaine Screen (Negative) U Marijuana (THC) Screen (Negative) Ur Drug Screen Comment Ethyl Alcohol (0.01-0.03) % SARS-CoV-2 (PCR) (Negative) Influenza Type A (PCR) (Negative) Influenza Type B (PCR) (Negative) RSV (PCR) (Negative) <Joe Dias MD - Last Filed: 05/30/22 00:43> Imaging Data US - abdomen: Attestation: I have reviewed the pertinent imaging results. <Sharon Connell MD - Last Filed: 05/29/22 20:11> Radiologist's impression: Ultrasound abdomen limited. Sonographic images of the right upper quadrant were obtained using roe-scale and color Doppler images. COMPARISON: CT of abdomen and pelvis from 01/01/2019. FINDINGS: Liver: Heterogeneous echotexture, with increased echogenicity. The medial aspect of the liver is not well visualized, but shows a hypoechoic masslike area. Gallbladder: Layering sludge. The gallbladder wall is mildly thickened measuring 4 mm. Common bile duct: 7 mm. Pancreas: Obscured by overlying bowel gas. Right kidney: Normal in size. Normal echotexture and cortex. No suspicious masses, stones, or hydronephrosis. Vasculature: Proximal abdominal aorta and IVC are unremarkable. IMPRESSION: 1. Heterogeneous appearance of the liver, with masslike appearance medially. This would be better evaluated with CT of the abdomen and pelvis with contrast. 2. Gallbladder sludge and mildly thickened gallbladder wall. No pericholecystic fluid. <Sharon Connell MD - Last Filed: 05/29/22 20:11> ECG Data Attestation: I personally reviewed and interpreted this ECG as follows: (Sinus bradycardia, prolonged QT) <Sharon Connell MD - Last Filed: 05/29/22 20:11> Discharge Plan Discharge Condition: Improved <Sharon Connell MD - Last Filed: 05/29/22 20:11> Activity Level: No Restrictions and Activity as Tolerated <Sharon Connell MD - Last Filed: 05/29/22 20:11> No Restrictions and Activity as Tolerated <Joe Dias MD - Last Filed: 05/30/22 00:43> Discharge Diet: Heart Healthy (2 gm sodium, low fat) <Sharon Connell MD - Last Filed: 12/01/22 20:11> Heart Healthy (2 gm sodium, low fat) <Joe Dias MD - Last Filed: 05/30/22 00:43> Prescriptions: New thiamine mononitrate (vit B1) [Vitamin B-1 (mononitrate)] 100 mg Tablet 100 mg PO DAILY 30 Days Qty: 30 0RF acetaminophen 325 mg tablet 650 mg PO QID PRNQty: 100 0RF Rx Instructions: PRN aches and pains Continued venlafaxine 150 mg capsule,extended release 24hr 150 mg PO DAILY Label Comments: TAKE ONE CAPSULE BY MOUTH EVERY DAY ALONG WITH ONE 75 MG CAPSULE amlodipine 10 mg tablet 10 mg PO DAILY lisinopril 30 mg tablet 60 mg PO DAILY Label Comments: TAKE 2 TABLETS BY MOUTH ONCE DAILY venlafaxine 75 mg capsule,extended release 24hr 75 mg PO DAILY Label Comments: TAKE ONE CAPSULE BY MOUTH EVERY DAY ALONG WITH ONE 150 MG CAPSULE lansoprazole 30 mg capsule,delayed release(DR/EC) 30 mg PO BID levothyroxine 137 mcg tablet 137 mcg PO DAILY Held ibuprofen 600 mg tablet 600 mg PO Q6H PRN Hold Instructions: Resume on 06/14/22. May resume as needed use on 06/14/2022 Label Comments: TAKE ONE TABLET BY MOUTH EVERY 6 HOURS NEEDED FOR PAIN <Sharon Connell MD - Last Filed: 05/29/22 20:11> Follow Up/Referrals: Maxwell Peace MD [Primary Care Provider] - <Sharon Connell MD - Last Filed: 05/29/22 20:11>
--- NOTE | 2022-05-29 18:36 | CRLHL7_ITS ---
For Patients: As a result of the Century Cures Act, medical imaging exams and procedure reports are released immediately into your electronic medical record. You may view this report before your referring provider. If you have questions, please contact your health care provider. INDICATION: Liver mass on abdominal ultrasound, right upper quadrant pain TECHNIQUE: CT abdomen and pelvis acquired with 100 cc Isovue 370 IV contrast. COMPARISON: Abdominal ultrasound from earlier today FINDINGS: Lower chest: Patchy opacity in the left lower lobe. Small hiatal hernia. Liver: Hepatic steatosis. Ill-defined areas of hypodensity throughout the liver. Patent portal vein. 1.1 cm lymph node near the joanna hepatis on image 43 series 3. The liver measures 23 cm in length. Spleen: Unremarkable. Pancreas: Unremarkable. Gallbladder and bile ducts: Unremarkable. Adrenal glands: Unremarkable. Kidneys: Unremarkable. GI tract: Unremarkable. Appendix is normal. Vascular structures: Aortoiliac calcifications. Lymph nodes: Unremarkable. Miscellaneous: Small fat containing umbilical hernia. No free air or significant free fluid. Pelvic Organs: Unremarkable. Bones: Unremarkable for age. IMPRESSION: Ill-defined areas of hypodensity in the liver on a background of hepatic steatosis. Hepatomegaly. Borderline lymph node in the joanna hepatis. Recommend MRI liver for further evaluation. Patchy opacity in the left lower lobe may represent atelectasis or infection. Small hiatal hernia. Please note that all CT scans at this facility use dose modulation, iterative reconstruction, and/or weight-based dosing when appropriate to reduce radiation dose to as low as reasonably achievable. Dictated by Sophia Mayes MD @ 05/29/2022 11:50:34 PM (Electronically Signed)
[2022-05-29] MEDS: LORazepam 2 MG/ML inj 0.5 MG IVP (18:53)
[2022-05-29] MEDS: 0.9 % SODIUM CH + KCL 20 mEq/L 1,000 ML 150 ML IV (18:57)
[2022-05-29] MEDS: HYDROCORTISONE SOD SUCCINATE 50 MG/ML inj 200 MG IVP (19:04)
[2022-05-29 19:09] LABS: Magnesium* 1.9 mg/dL (1.5-2.6)
[2022-05-29 20:10] LABS: Slide Review Acceptable Review (Acceptable)
[2022-05-29 20:55] LABS: Appearance Urine Clear (Clear); Bilirubin Urine 1+ (Negative); Blood Urine Negative (Negative); Color Urine Orange (Yellow); Glucose Urine Negative (Negative); Ketones Urine 2+ (Negative); Leukocyte Esterase Urine Negative (Negative); Nitrite Urine Negative (Negative); Protein Urine Negative (Negative); Specific Gravity Urine 1.015 (1.000-1.030)
[2022-05-29 21:22] LABS: Amphetamine Screen Urine Negative (Negative); Barbiturate Screen Urine Negative (Negative); Benzodiazepines Screen Urine Negative (Negative); Cannabinoid Screen Urine POSITIVE (Negative); Cocaine Screen Urine Negative (Negative); Methadone Screen Urine Negative (Negative); Methamphetamines Screen Urine Negative (Negative); Opiate Screen Urine Negative (Negative); Phencyclidine Screen Urine Negative (Negative); Tricyclic Antidepressant Urine Negative (Negative)
[2022-05-29 21:23] LABS: Oxycodone Screen Urine Negative (Negative)
[2022-05-29 21:52] LABS: Amorphous Sediment Urine Few; RBC Urine 0-2 (0-2); Squamous Epithelial Cell Urine Few (None-Few); WBC Urine 0-2 (0-5)
[2022-05-29] MEDS: diphenhydrAMINE 50 MG/ML inj IVP (22:12)
--- NOTE | 2022-05-29 23:59 | W.PC.EDHO ---
Primary Language: Preferred Language: Orientation Status: [x] Alert & Oriented [] Slight Confusion [] Known Dx Dementia Transfers By: [] Assist of 1 [x] Assist of 2 [] Lift Active Medications Generic Name Dose Route Start Last Admin Trade Name Freq PRN Reason Stop Dose Admin Potassium Chloride/Sodium Chloride 1,000 mls @ 0 mls/hr 05/29/22 17:29 05/29/22 18:44 0.9 % Sodium Ch + Kcl 20 Meq/L IV Infused .Q0M JENI Infusion Per Protocol Potassium Chloride/Sodium Chloride 1,000 mls @ 150 mls/hr 05/29/22 18:43 05/29/22 18:57 0.9 % Sodium Ch + Kcl 20 Meq/L IV 150 mls/hr .[id number] JENI Administration Discontinued Medications Generic Name Dose Route Start Last Admin Trade Name Freq PRN Reason Stop Dose Admin Diphenhydramine HCl 50 mg 05/29/22 21:46 05/29/22 22:12 Diphenhydramine 50 Mg/Ml Inj IVP 05/29/22 21:47 50 mg ONCE ONE Administration Hydrocortisone Sodium Succinate 200 mg 05/29/22 18:52 05/29/22 19:04 Hydrocortisone Sod Succinate 50 Mg/Ml Inj IVP 05/29/22 18:53 200 mg ONCE ONE Administration Sodium Chloride 1,000 mls @ 1,000 mls/hr 05/29/22 16:30 05/29/22 17:41 0.9 % Sodium Chloride 1000 Ml IV 05/29/22 17:29 Infused .Q1H JENI Infusion Lorazepam 1 mg 05/29/22 16:20 05/29/22 16:49 Lorazepam 2 Mg/Ml Inj IVP 05/29/22 16:21 1 mg ONCE ONE Administration Lorazepam 0.5 mg 05/29/22 18:42 05/29/22 18:53 Lorazepam 2 Mg/Ml Inj IVP 05/29/22 18:43 0.5 mg ONCE ONE Administration Lorazepam 1 mg 05/29/22 20:38 05/29/22 20:47 Lorazepam 2 Mg/Ml Inj IVP 05/29/22 20:39 1 mg ONCE ONE Administration Ondansetron HCl 4 mg 05/29/22 16:20 05/29/22 16:48 Ondansetron 2 Mg/Ml Inj IVP 05/29/22 16:21 4 mg ONCE ONE Administration Ondansetron HCl 4 mg 05/29/22 18:42 05/29/22 18:50 Ondansetron 2 Mg/Ml Inj IVP 05/29/22 18:43 4 mg ONCE ONE Administration Description of Symptoms ED Triage Present Problem Pt here with nausea/vomiting/diarrhea. Last etoh Description drink was thursday. Previously has been drinking .75 -1L per day. Tremors/headache/sweating noted. No hx of withdrawls. ED Triage Date of Onset of 05/25/22 Symptoms Female History Patient Lamona Coma Scale Lamona coma scale total score 15 Lamona coma scale total score 15 Pain Pain Description [Upper Pressure,Sharp,Dull, Achy Abdomen] Pain Intensity [Upper Abdomen] 5 Pain Intensity 6 Pain Scale Used [Upper Abdomen Numeric (1 - 10) ] Pain Scale Used Numeric (1 - 10) IV Insertion/Site Date of IV Line Insertion [ 05/29/22 Left Forearm] Oxygen Administration Pulse Oximetry 89 Pulse Oximetry 90 Pulse Oximetry 88 Pulse Oximetry 90 Pulse Oximetry 91 Pulse Oximetry 91 Pulse Oximetry 92 Pulse Oximetry 93 Pulse Oximetry 91 Pulse Oximetry 94 Pulse Oximetry 93 Pulse Oximetry 91 Pulse Oximetry 95 Pulse Oximetry 95 Pulse Oximetry 93 Pulse Oximetry 93 Pulse Oximetry 98 Pulse Oximetry 95 Pulse Oximetry 95 Pulse Oximetry 96 Pulse Oximetry 97 Pulse Oximetry 93 Pulse Oximetry 94 Pulse Oximetry 98 Pulse Oximetry 98 Pulse Oximetry 96 Pulse Oximetry 87 Pulse Oximetry 98 Pulse Oximetry 99 Oxygen Delivery Method Room Air Cardiac Monitoring EKG Method 12 Lead
[2022-05-30] VITALS (25 sets, daily range): BP systolic 120–164; BP diastolic 46–104; PULSE 55–89; RESP 16–20; TEMP 36.2–37.1; O2SAT 91–96; BMI 30.6
--- NOTE | 2022-05-30 00:25 | ED.NURSE ---
heel burnisher to rn ms report given
--- NOTE | 2022-05-30 01:30 | PM.IMPN1 ---
Progress Note: A&P Assessment and plan (1) Alcohol withdrawal: Status: Acute (2) Hyponatremia: Status: Acute (3) Hypokalemia: Status: Acute Plan E hospitalist collaboration: I have discussed in detail with ED Dr. Dias. 52-year-old male admitted from the ED for alcohol withdrawal, hyponatremia, hypokalemia. Patient made a decision to stop drinking (he had stopped in the past). His last drink was Thursday. Since then, he has had nausea and vomiting. Vomiting has been nonbloody. He has not been eating or drinking. He has a baseline tremor, but tremors had worsened since he quit drinking. Also some abdominal pain that is not necessarily new for him, but slightly worse and may have been increased with all the vomiting he had done. No chest pain or shortness of breath. No reported fever or chills. No reported melena or hematochezia or dysuria hematuria. Laboratory/imaging in the ED: Ultrasound of the abdomen revealed heterogeneous appearance of the liver and masslike appearance medially and recommended CT for further evaluation, gallbladder sludge and mildly thickened gallbladder but no pericholecystic fluid. CT abdomen pelvis with contrast and he received steroid prep due to contrast dye allergy): Ill-defined hypodensity in the liver on the background of hepatic steatosis and hepatomegaly and borderline lymph node in the portal hepatis and radiology recommends MRI for further characterization. WBC 10.5, hemoglobin 15.6, hematocrit 40.7, MCV 111, platelets 239. Sodium 125, potassium 2.6, chloride 85, CO2 29, BUN 9, creatinine 0.6, glucose 106, calcium 8, magnesium 1.9, total bilirubin 4.6, direct bilirubin 1.9, AST 198, ALT 83, alk phosphatase 219, total protein 8.2, albumin 4.5. Lipase 283. CRP 3.3. Lactic acid 2. Troponin I less than 0.01. Urinalysis 2+ ketones, negative leukocyte esterase, negative nitrite, no bacteria. Alcohol level less than 0.01. Salicylates less than 1. Tylenol less than 10. Urine drug screen negative except for positive for marijuana. COVID-19 negative. Influenza a and B-. RSV negative. Patient was given IV fluids and potassium replacement and Ativan. As mentioned he received steroid prep along with Benadryl prior to CT scan with contrast due to contrast dye allergy. PMH/PSH/allergies/home medication/social history reviewed. Patient's at the bedside mention he did have a TIA in 2009 and has had a baseline tremor since then, when he goes to withdrawal tremors get worse. Hypertension, anxiety/depression. Telemedicine exam: Vitals reviewed No apparent distress, patient is quite sleepy, but he will arouse to verbal prompt and he will be cooperative Follows commands, no lateralizing weakness, neurologically intact, has been tremor both sides hands and arms Pupils equal and reactive to light, no scleral icterus Lips and mouth are dry, tongue midline on protrusion Neck trachea midline Heart regular rate and rhythm, no murmurs Lungs clear bilateral no crackles no wheezes Abdomen bowel sounds are positive, mildly distended which at the bedside feels this is chronic for him, has a umbilical hernia that is soft and reducible for nursing, slightly firm but in general still soft and no evidence of rebound tenderness Lower extremities no pitting edema Skin dry Summary: 52-year-old male admitted from the ED for alcohol withdrawal, hyponatremia, hypokalemia, hyperbilirubinemia/transaminitis, abdomen normal hypodensity in the liver on imaging. Assessment and plan: Alcohol withdrawal Alcohol dependence Hyperbilirubinemia/Transaminitis Abnormal hypodensity liver seen on imaging, hepatic steatosis Hyponatremia Hypokalemia Elevated lactic likely related to alcoholic ketoacidosis Positive THC and drug screen: Plan: Patient did have an elevated lactate but vitals stable and hemodynamically stable, likely alcoholic ketoacidosis, thus far no signs of infection with negative UA/COVID/influenza AMB/RSV. He has not had any chest pain or shortness of breath or cough and LLL atelectasis thus monitor for developing pneumonia. Will repeat lactic acid and monitor vitals. Monitor for fever. Hyponatremia related to volume depletion with the nausea and vomiting, with alcohol must consider cause as well, but more likely related to nausea/vomiting and will have a repeat sodium. Hypokalemia replaced in the ED and will recheck, check a phosphorus, magnesium was 1.9 and with the being under 2 will replace with the hypokalemia. Hyperbilirubinemia and transaminitis likely alcoholic hepatitis related, also explained he has a history of fatty liver so likely acute on chronic, will repeat labs in the a.m., patient is sleepy right now but awakes and follows appropriately with verbal prompts, will hold on checking ammonia at this time but could consider if he has ongoing lethargy but most likely related to recent Benadryl for CT contrast dye allergy. Ultrasound abdomen liver density and recommended CT scan and again hypodensity seen and radiology recommends an MRI and will hold on MRI tonight and discuss in the a.m. Zofran as needed for nausea. Discussed with his at the bedside. Home medication reconciliation to be formally completed in the a.m., would hold his home meds of amlodipine, ibuprofen, lisinopril, venlafaxine at this time and reassess in the a.m. if he can tolerate p.o. intake, if needed will add IV BP medication. CODE STATUS: Full code Please call E hospitalist with questions Subjective Date Seen: 05/30/22 Exam Const: Vital Signs, click to edit/add: Vital Signs - 24 hr 05/29/22 16:04 05/29/22 16:25 05/29/22 16:30 Temperature 96.8 F L Pulse Rate 59 L Pulse Rate [Left P ulse Oximeter] 55 L Respiratory Rate 20 Blood Pressure Blood Pressure [Ri ght Upper Arm] 127/92 H Pulse Oximetry 99 98 87 L Oxygen Delivery Me thod Room Air 05/29/22 16:33 05/29/22 16:45 05/29/22 17:00 Temperature Pulse Rate 58 L 58 L 58 L Pulse Rate [Left P ulse Oximeter] Respiratory Rate Blood Pressure 153/104 H Blood Pressure [Ri ght Upper Arm] Pulse Oximetry 96 98 98 Oxygen Delivery Me thod 05/29/22 17:02 05/29/22 17:03 05/29/22 17:16 Temperature Pulse Rate 65 65 74 Pulse Rate [Left P ulse Oximeter] Respiratory Rate Blood Pressure 170/108 H Blood Pressure [Ri ght Upper Arm] Pulse Oximetry 94 93 97 Oxygen Delivery Me thod 05/29/22 17:30 05/29/22 17:33 05/29/22 17:34 Temperature Pulse Rate 59 L 62 61 Pulse Rate [Left P ulse Oximeter] Respiratory Rate Blood Pressure 135/88 Blood Pressure [Ri ght Upper Arm] Pulse Oximetry 96 95 95 Oxygen Delivery Me thod 05/29/22 17:45 05/29/22 18:02 05/29/22 18:03 Temperature Pulse Rate 60 60 63 Pulse Rate [Left P ulse Oximeter] Respiratory Rate Blood Pressure 126/112 H Blood Pressure [Ri ght Upper Arm] Pulse Oximetry 98 93 93 Oxygen Delivery Me thod 05/29/22 18:15 05/29/22 18:30 05/29/22 18:34 Temperature Pulse Rate 60 63 Pulse Rate [Left P ulse Oximeter] Respiratory Rate Blood Pressure 145/99 H Blood Pressure [Ri ght Upper Arm] Pulse Oximetry 95 95 Oxygen Delivery Me thod 05/29/22 18:45 05/29/22 19:00 05/29/22 19:02 Temperature Pulse Rate 64 64 69 Pulse Rate [Left P ulse Oximeter] Respiratory Rate Blood Pressure 134/92 H Blood Pressure [Ri ght Upper Arm] Pulse Oximetry 91 93 94 Oxygen Delivery Me thod 05/29/22 19:15 05/29/22 19:30 05/29/22 19:32 Temperature Pulse Rate 65 66 66 Pulse Rate [Left P ulse Oximeter] Respiratory Rate Blood Pressure 145/98 H Blood Pressure [Ri ght Upper Arm] Pulse Oximetry 91 93 92 Oxygen Delivery Me thod 05/29/22 19:45 05/29/22 20:00 05/29/22 20:02 Temperature Pulse Rate 65 67 68 Pulse Rate [Left P ulse Oximeter] Respiratory Rate Blood Pressure 125/97 H Blood Pressure [Ri ght Upper Arm] Pulse Oximetry 91 91 90 Oxygen Delivery Me thod 05/29/22 20:15 05/29/22 20:34 05/29/22 21:03 Temperature Pulse Rate 67 Pulse Rate [Left P ulse Oximeter] Respiratory Rate Blood Pressure 147/93 H 135/97 H Blood Pressure [Ri ght Upper Arm] Pulse Oximetry 88 Oxygen Delivery Me thod 05/29/22 21:32 05/29/22 22:02 05/29/22 22:32 Temperature Pulse Rate Pulse Rate [Left P ulse Oximeter] Respiratory Rate Blood Pressure 138/88 130/89 125/86 Blood Pressure [Ri ght Upper Arm] Pulse Oximetry Oxygen Delivery Me thod 05/29/22 23:02 05/29/22 23:35 05/29/22 23:45 Temperature Pulse Rate 60 60 Pulse Rate [Left P ulse Oximeter] Respiratory Rate Blood Pressure 126/86 Blood Pressure [Ri ght Upper Arm] Pulse Oximetry 90 89 Oxygen Delivery Sc thod Labs Labs: Laboratory Results - last 24 hr 05/29/22 05/29/22 05/29/22 16:00 16:40 16:40 WBC 10.95 RBC 3.68 L Hgb 15.6 Hct 40.7 MCV 111 H MCH 42 H MCHC 38 H RDW Coeff of Vladislav 11.6 Plt Count 239 Neut % (Auto) 82.0 H Lymph % (Auto) 10.4 L [place] % (Auto) 5.9 Eos % (Auto) 0.3 Baso % (Auto) 0.5 Neut # (Auto) 9.00 H Lymph # (Auto) 1.10 [place] # (Auto) 0.60 Eos # (Auto) 0.03 Baso # (Auto) 0.05 Abs Immat Gran (auto) 0.10 Imm/Tot Granulo (auto) 0.9 Diff Slide Review Acceptable Review ESR 12 Sodium Potassium Chloride Carbon Dioxide BUN Creatinine Estimated Creat Clear Estimated GFR Glucose Lactate Calcium Magnesium Total Bilirubin Direct Bilirubin AST ALT Alkaline Phosphatase Troponin I C-Reactive Protein Total Protein Albumin Lipase Urine Color Urine Appearance Urine pH Ur Specific [place] Urine Protein Urine Glucose (UA) Urine Ketones Urine Blood Urine Nitrite Urine Bilirubin Urine Urobilinogen Ur Leukocyte Esterase Urine RBC Urine WBC Ur Squamous Epith Cells Amorphous Sediment Urine Bacteria Salicylates Urine Opiates Screen Ur Oxycodone Screen Urine Methadone Screen Ur Propoxyphene Screen Acetaminophen Ur Barbiturates Screen U Tricyclic Antidepress Ur Phencyclidine Scrn Ur Amphetamines Screen U Methamphetamines Scrn U Benzodiazepines Scrn Urine Cocaine Screen U Marijuana (THC) Screen Ur Drug Screen Comment Ethyl Alcohol SARS-CoV-2 (PCR) Negative SARS-CoV-2 Influenza Type A (PCR) Negative PCR FLU A Influenza Type B (PCR) Negative PCR FLU B RSV (PCR) Negative PCR RSV 05/29/22 05/29/22 05/29/22 16:40 16:40 16:40 WBC RBC Hgb Hct MCV MCH MCHC RDW Coeff of [place] Plt Count Neut % (Auto) Lymph % (Auto) [place] % (Auto) Eos % (Auto) Baso % (Auto) Neut # (Auto) Lymph # (Auto) [place] # (Auto) Eos # (Auto) Baso # (Auto) Abs Immat Gran (auto) Imm/Tot Granulo (auto) Diff Slide Review ESR Sodium 125 L Potassium 2.6 L* Chloride 85 L Carbon Dioxide 29 BUN 9 Creatinine 0.6 Estimated Creat Clear 142.38 Estimated GFR 115 Glucose 106 Lactate 2.0 H Calcium 8.8 Magnesium Total Bilirubin 4.6 H Direct Bilirubin 1.9 H AST 198 H ALT 83 H Alkaline Phosphatase 219 H Troponin I < 0.01 L Cancelled C-Reactive Protein 3.3 H Total Protein 8.2 Albumin 4.5 Lipase 283 Urine Color Urine Appearance Urine pH Ur Specific [place] Urine Protein Urine Glucose (UA) Urine Ketones Urine Blood Urine Nitrite Urine Bilirubin Urine Urobilinogen Ur Leukocyte Esterase Urine RBC Urine WBC Ur Squamous Epith Cells Amorphous Sediment Urine Bacteria Salicylates < 1.0 L Urine Opiates Screen Ur Oxycodone Screen Urine Methadone Screen Ur Propoxyphene Screen Acetaminophen < 10.0 L Ur Barbiturates Screen U Tricyclic Antidepress Ur Phencyclidine Scrn Ur Amphetamines Screen U Methamphetamines Scrn U Benzodiazepines Scrn Urine Cocaine Screen U Marijuana (THC) Screen Ur Drug Screen Comment Ethyl Alcohol < 0.01 L SARS-CoV-2 (PCR) Influenza Type A (PCR) Influenza Type B (PCR) RSV (PCR) 05/29/22 05/29/22 05/29/22 16:40 20:30 20:30 WBC RBC Hgb Hct MCV MCH MCHC RDW Coeff of Vladislav Plt Count Neut % (Auto) Lymph % (Auto) [place] % (Auto) Eos % (Auto) Baso % (Auto) Neut # (Auto) Lymph # (Auto) [place] # (Auto) Eos # (Auto) Baso # (Auto) Abs Immat Gran (auto) Imm/Tot Granulo (auto) Diff Slide Review ESR Sodium Potassium Chloride Carbon Dioxide BUN Creatinine Estimated Creat Clear Estimated GFR Glucose Lactate Calcium Magnesium 1.9 Total Bilirubin Direct Bilirubin AST ALT Alkaline Phosphatase Troponin I C-Reactive Protein Total Protein Albumin Lipase Urine Color [place] A Urine Appearance Clear Urine pH 7.0 Ur Specific [place] 1.015 Urine Protein Negative Urine Glucose (UA) Negative Urine Ketones 2+ A Urine Blood Negative Urine Nitrite Negative Urine Bilirubin 1+ A Urine Urobilinogen 2.0 A Ur Leukocyte Esterase Negative Urine RBC 0-2 Urine WBC 0-2 Ur Squamous Epith Cells Few Amorphous Sediment Few A Urine Bacteria None Salicylates Urine Opiates Screen Negative Ur Oxycodone Screen Negative Urine Methadone Screen Negative Ur Propoxyphene Screen Negative Acetaminophen Ur Barbiturates Screen Negative U Tricyclic Antidepress Negative Ur Phencyclidine Scrn Negative Ur Amphetamines Screen Negative U Methamphetamines Scrn Negative U Benzodiazepines Scrn Negative Urine Cocaine Screen Negative U Marijuana (THC) Screen POSITIVE A* Ur Drug Screen Comment See Note Ethyl Alcohol SARS-CoV-2 (PCR) Influenza Type A (PCR) Influenza Type B (PCR) RSV (PCR)
[2022-05-30] MEDS: 0.9 % SODIUM CH + KCL 20 mEq/L 1,000 ML 150 ML IV ×3 (02:45→18:07)
[2022-05-30] MEDS: MAGNESIUM SULFATE 2 GM/50 ML PIGGYBACK IVPB (02:46)
[2022-05-30] MEDS: POTASSIUM CHLORIDE 10 MEQ CAPSULE ER 40 MEQ PO (03:57)
[2022-05-30] MEDS: THIAMINE 250 MG in 0.9 % SODIUM CHLORIDE 100 ml 100 ML 102.5 MG IVPB (03:58)
--- NOTE | 2022-05-30 05:26 | PC.NURSE ---
End of Shift: Patient admitted to CCU4. Alert and oriented. C/o pain in abdomen 5/10 and intermittent nausea. Up to bathroom with 2 assist and gait belt, unsteady. CIWA 4-7 throughout shift. Able to sleep between cares. Tolerating clear liquids and able to swallow pills without difficulty.
[2022-05-30] MEDS: PANTOPRAZOLE SODIUM 40 MG INJ IVP (06:20)
[2022-05-30] MEDS: SCOPOLAMINE 1 MG/3 DAY PATCH 1 PATCH TRANSDERMA (07:28)
[2022-05-30 07:33] LABS: Albumin* 3.7 g/dL (3.3-5.0); Basophils Absolute Auto 0.02 K/uL (0.00-0.30); Basophils Percent Auto 0.2 % (0.0-3.0); Chloride* 96 mmol/L (96-114); Eosinophils Absolute Auto 0.01 K/uL (0.00-0.50); Eosinophils Percent Auto 0.1 % (0.0-7.0); Hematocrit 35.6 % (37.0-53.0); Hemoglobin* 13.5 gm/dL (13.5-17.5); Immature Granulocytes Abs Auto 0.07 K/uL (0.00-0.30); Immature Granulocytes Pct Auto 0.8 %; Lymphocytes Percent Auto 16.6 % (20-44); Mean Corpuscular HGB Conc 38 gm/dL (32-36); Mean Corpuscular Hemoglobin 43 pg (26-34); Mean Corpuscular Volume 114 fL (80-100); Neutrophils Percent Auto 76.3 % (42.0-72.0); Platelet Count* 207 K/uL (140-440); RDW Coefficient of Variation % 11.7 % (11.5-15.5); Red Blood Count 3.12 m/uL (4.30-5.90); White Blood Count* 9.27 K/uL (4.50-11.00)
[2022-05-30 07:34] LABS: Potassium* 3.3 mmol/L (3.6-5.1); Sodium* 130 mmol/L (135-149)
[2022-05-30 07:36] LABS: Alanine Aminotransferase* 76 U/L (4-50); Alkaline Phosphatase* 171 U/L (40-150); Aspartate Amino Transferase* 144 U/L (12-35); Bilirubin Total* 2.9 mg/dL (0.1-1.5); Blood Urea Nitrogen* 8 mg/dL (7-30); Carbon Dioxide* 26 mmol/L (20-32); Creatinine* 0.6 mg/dL (0.5-1.5); Est. Creatinine Clearance* 142.38; Estimated Glomerular Filt Rate 115 ml/min; Glucose* 94 mg/dL (60-115); Total Protein* 6.9 g/dL (6.0-8.3)
[2022-05-30 07:37] LABS: Calcium* 7.8 mg/dL (8.4-10.6); Magnesium* 2.7 mg/dL (1.5-2.6); Slide Review Reflex No
[2022-05-30] MEDS: POTASSIUM BICARB 25 MEQ EFFERVESCENT TAB 50 MEQ PO (08:57)
[2022-05-30] MEDS: OMEPRAZOLE 20 MG CAPSULE DR PO ×2 (08:58→21:16)
[2022-05-30] MEDS: THIAMINE 100 MG TABLET PO (09:04)
[2022-05-30] MEDS: LORazepam 2 MG/ML inj IVP (09:21)
[2022-05-30] MEDS: NICOTINE 21 MG PATCH 1 PATCH TRANSDERMA (10:20)
[2022-05-30] MEDS: ACETAMINOPHEN 325 MG TABLET 650 MG PO ×2 (12:01→21:16)
[2022-05-30] MEDS: PROCHLORPERAZINE 10 MG TABLET PO (14:05)
[2022-05-30 14:33] LABS: Bilirubin Direct* 1.5 mg/dL (0.0-0.5)
[2022-05-30 15:21] LABS: Lactate* 1.2 mmol/L (0.5-1.9)
--- NOTE | 2022-05-30 21:08 | PM.IMHP1 ---
Hospitalist- H&P: HPI History of Present Illness Time Seen by Provider: 14:00 Date Seen: 05/30/22 Chief complaint: Extreme Nausea,Vomiting,Diarrhea Narrative: Joe Fleming is a 52 year old man presents with a 1 week history of increasing nausea and vomiting. For a few years has been consuming at least 1 L of liquor daily. Has had tremors with alcohol withdrawal in the past. Denies prior seizures or delirium tremens in association with the same. Decided to stop drinking alcohol altogether about 45 days prior to presentation to the hospital. Nausea and vomiting or persistent. Unable to eat or drink. Denies fevers, rigors, or diaphoresis. Has had abdominal pain particularly with vomiting. Denies coffee-ground emesis or hematemesis. Denies melena or hematochezia. Denies hematuria. Review of Systems Status of ROS: Reports: 10 or more systems reviewed and unremarkable except as noted in History and below Narrative: Denies chest heaviness, pressure, tightness, or pain. Denies dyspnea at rest, dyspnea with exertion, paroxysmal nocturnal dyspnea, or orthopnea. Denies cough. Acknowledges a sense of orthostasis. Denies syncope or near-syncope. Denies palpitations or chest fluttering. Denies dependent edema. Acknowledges increasing sense of generalized weakness. Has not had any focal motor neurologic deficits. Has had tremors with alcohol withdrawal at this time. Denies use of any other street or recreational drugs. Has not been treated for alcoholism in the past. Has not been treated for any other other chemical dependency. [facility] Medical History (Updated 05/30/22 @ 21:20 by Sonny Juarez MD) Abnormal results of liver function studies Attention deficit disorder Chronic alcoholism Essential hypertension Gastroesophageal reflux disease Generalized anxiety disorder Hepatic steatosis Herniation of intervertebral disc between L4 and L5 Hyperlipidemia Hypothyroidism Obstructive sleep apnea on CPAP Surgical History Previous back surgery Social History Highest level of school completed/degree received: some college, no degree Smoking Status: Former smoker Do you use any of these nicotine containing products: Smokeless Tobacco Second hand tobacco smoke exposure: No How often do you have a drink containing alcohol: 4 or more times a week Alcohol type: hard liquor Alcohol type details: 1 liter vodka daily How many standard drinks containing alcohol do you have on a typical day: 7 to 9 How often do you have six or more drinks on one occasion: Daily or almost daily AUDIT-C Alcohol total score: 11 Non-prescribed substance use: marijuana (any form) Caffeine: Yes service: No Meds Home Medications and Allergies Home Medications Medication Instructions Recorded Confirmed Type amlodipine 10 mg tablet 10 mg PO DAILY 05/29/22 05/30/22 History ibuprofen 600 mg tablet 600 mg PO Q6H PRN 05/29/22 05/30/22 History lisinopril 30 mg tablet 60 mg PO DAILY 05/29/22 05/30/22 History venlafaxine 150 mg 150 mg PO DAILY 05/29/22 05/30/22 History capsule,extended release 24 hr lansoprazole 30 mg capsule,delayed 30 mg PO BID 05/30/22 05/30/22 History release levothyroxine 137 mcg tablet 137 mcg PO DAILY 05/30/22 05/30/22 History venlafaxine 75 mg capsule,extended 75 mg PO DAILY 05/30/22 05/30/22 History release 24 hr Allergies Allergy/AdvReac Type Severity Reaction Status Date / Time Iodinated Contrast Media Allergy Severe Hives Verified 05/29/22 23:41 Exam Narrative: Exam Narrative: Laying in bed with head elevated about 30?. Appears comfortable. No acute distress. Tremors of both hands. Non diaphoretic. Articulate cooperative. Alert and oriented to self, place, time, situation. Vision and hearing are grossly normal. Conjunctiva is only mildly injected. No icterus. Tight oral aperture. Dry buccal mucosa. Supple neck. Midline trachea. Normal thyroid. No JVD, hepatojugular reflux, or carotid bruits. No lymphadenopathy. Lungs clear to auscultation save some fine end inspiratory rales bibasilarly. No wheezing or rhonchi. Heart tones with regular rhythm, normal S1-S2, without murmur, gallop, or rub. Abdomen with active bowel sounds, soft, nontender. Enlarged liver. Skin is warm, dry, intact. No jaundice, but does have some petechiae. No other rashes. Cranial nerves 3-12 are grossly normal. No asterixis. Moves all 4 extremities. Const: Vital Signs, click to edit/add: Vital Signs - 24 hr 05/29/22 21:32 05/29/22 22:02 05/29/22 22:32 Temperature Pulse Rate Pulse Rate [Left A pical] Respiratory Rate Blood Pressure 138/88 130/89 125/86 Blood Pressure [Ri ght Arm] Pulse Oximetry Oxygen Delivery Me thod 05/29/22 23:02 05/29/22 23:35 05/29/22 23:45 Temperature Pulse Rate 60 60 Pulse Rate [Left A pical] Respiratory Rate Blood Pressure 126/86 Blood Pressure [Ri ght Arm] Pulse Oximetry 90 89 Oxygen Delivery Me thod 05/30/22 00:30 05/30/22 04:20 05/30/22 01:00 Temperature 97.4 F L 97.4 F L Pulse Rate Pulse Rate [Left A pical] 61 61 Respiratory Rate 16 16 16 Blood Pressure Blood Pressure [Ri ght Arm] 142/91 H 142/91 H Pulse Oximetry 91 91 Oxygen Delivery Me thod Room Air Room Air 05/30/22 02:00 05/30/22 03:00 05/30/22 04:00 Temperature 97.9 F 97.2 F L Pulse Rate Pulse Rate [Left A pical] 68 63 68 Respiratory Rate 16 16 16 Blood Pressure Blood Pressure [Ri ght Arm] 120/76 138/98 H 131/92 H Pulse Oximetry 93 91 92 Oxygen Delivery Me thod Room Air Room Air CPAP 05/30/22 05:00 05/30/22 05:29 05/30/22 06:00 Temperature 97.5 F L Pulse Rate 67 Pulse Rate [Left A pical] 60 55 L Respiratory Rate 16 16 Blood Pressure Blood Pressure [Ri ght Arm] 122/81 141/87 H Pulse Oximetry 93 95 Oxygen Delivery Me thod CPAP CPAP 05/30/22 07:00 05/30/22 08:00 05/30/22 07:00 Temperature 97.6 F 97.6 F Pulse Rate Pulse Rate [Left A pical] 57 L 57 L 57 L Respiratory Rate 16 16 16 Blood Pressure Blood Pressure [Ri ght Arm] 130/85 130/85 Pulse Oximetry 91 91 Oxygen Delivery Me thod CPAP CPAP 05/30/22 09:00 05/30/22 10:00 05/30/22 12:01 Temperature 98.1 F 98.3 F Pulse Rate Pulse Rate [Left A pical] 72 78 Respiratory Rate 18 18 Blood Pressure Blood Pressure [Ri ght Arm] 149/104 H 146/95 H Pulse Oximetry 93 93 Oxygen Delivery Me thod Room Air Room Air 05/30/22 11:00 05/30/22 13:00 05/30/22 14:00 Temperature 98.7 F 97.8 F Pulse Rate Pulse Rate [Left A pical] 58 L 68 Respiratory Rate 18 18 Blood Pressure Blood Pressure [Ri ght Arm] 147/90 H 130/87 Pulse Oximetry 93 94 94 Oxygen Delivery Me thod Room Air Room Air Room Air 05/30/22 15:00 05/30/22 15:00 05/30/22 16:00 Temperature 97.8 F Pulse Rate Pulse Rate [Left A pical] 68 72 Respiratory Rate 18 18 18 Blood Pressure Blood Pressure [Ri ght Arm] 141/95 H Pulse Oximetry 94 Oxygen Delivery Me thod Room Air Hospitalist - H&P: Result Labs Labs: Short CBC 05/30/22 Range/Units 07:06 WBC 9.27 (4.50-11.00) K/uL Hgb 13.5 (13.5-17.5) gm/dL Hct 35.6 L (37.0-53.0) % Plt Count 207 (140-440) K/uL BMP 05/30/22 07:06 Sodium 130 L Potassium 3.3 L Chloride 96 Carbon Dioxide 26 BUN 8 Creatinine 0.6 Glucose 94 Calcium 7.8 L Liver Function 05/30/22 Range/Units 07:06 Total Bilirubin 2.9 H (0.1-1.5) mg/dL Direct Bilirubin 1.5 H (0.0-0.5) mg/dL AST 144 H (12-35) U/L ALT 76 H (4-50) U/L Alkaline Phosphatase 171 H (40-150) U/L Albumin 3.7 (3.3-5.0) g/dL Urine 05/29/22 Range/Units 20:30 Urine Color [place] A (Yellow) Urine Appearance Clear (Clear) Urine pH 7.0 (5.0-8.5) Ur Specific [place] 1.015 (1.000-1.030) Urine Protein Negative (Negative) Urine Glucose (UA) Negative (Negative) Imaging CT Chest/Ab/Pelvis: Attestation: I have reviewed the pertinent imaging results. Radiologist's impression: Ill-defined areas of hypodensity in the liver on a background of hepatic steatosis. Hepatomegaly. Borderline lymph node in the joanna hepatis. Recommend MRI liver for further evaluation. Patchy opacity in the left lower lobe may represent atelectasis or infection. Small hiatal hernia. US - abdomen: Radiologist's impression: 1. Heterogeneous appearance of the liver, with masslike appearance medially. This would be better evaluated with CT of the abdomen and pelvis with contrast. 2. Gallbladder sludge and mildly thickened gallbladder wall. No pericholecystic fluid. Assessment and Plan Assessment and plan (1) Alcohol withdrawal: Status: Acute (2) Hyponatremia: Status: Acute (3) Hypokalemia: Status: Acute (4) Chronic alcoholism: Status: Acute (5) Abnormal results of liver function studies: Problem comment: Since 2019 Concerning for evolving hepatic cirrhosis Status: Acute (6) Hepatic steatosis: Status: Acute (7) Generalized anxiety disorder: Status: Acute (8) Gastroesophageal reflux disease: Status: Acute Plan 1. Reviewed impression with patient and his significant other. 2. Answered their questions to their satisfaction. 3. Continue to with alcohol withdrawal monitoring and intervention through CIWA protocol and administration of lorazepam. 4. Potassium supplementation. 5. Antiemetics p.r.n. 6. Resume his usual medications, including venlafaxine. 7. Recommended he strongly consider pursuing lifelong sobriety and treatment for his alcoholism. Initiated discussion with him about the abnormal liver functions and associated anatomical findings on ultrasound and CT scan. 8. Warrants outpatient MR scan of the liver. 9. Advance diet as tolerated. Saline lock IV. 10. They are agreeable to above stated plans and recommendations.
[2022-05-30] MEDS: MELATONIN 3 MG TABLET 6 MG PO (21:16)
[2022-05-30] MEDS: VENLAFAXINE ER 75 MG CAPSULE 225 MG PO (21:17)
[2022-05-30] MEDS: NICOTINE 4 MG GUM BUCCAL (21:18)
[2022-05-30] MEDS: LORazepam 1 MG TABLET PO (21:18)
--- NOTE | 2022-05-30 22:15 | PC.NURSE ---
Shift Note: questionable balance on standing, assist x1. Pt ambulated x2 from CCU4 to end of [facility] and back. Verbalized increased appetite, tolerating regular diet without difficulty. BP's mildly hypertensive 140's/90's, SpO2 93% on RA. He does use a CPAP while sleeping. C/o 5/10 unchanging discomfort he describes as a ring in his abdomen and 2/10 headache that improved after PRN Tylenol. CIWA's= 6. Pt did receive one dose of Ativan this morning but has not required any for withdrawal symptoms since. He does verbalize anxiety, Effexor restarted at HS and order obtained for HS Ativan. Aromatherapy patch given and mom currently at bedside.
[2022-05-31] VITALS (7 sets, daily range): BP systolic 150–179; BP diastolic 100–113; PULSE 66–89; RESP 18–20; TEMP 35.9–36.3; O2SAT 95–96
[2022-05-31] MEDS: 0.9 % SODIUM CH + KCL 20 mEq/L 1,000 ML 150 ML IV (00:44)
--- NOTE | 2022-05-31 06:54 | PC.NURSE ---
Pt alert and oriented. Denies pain. BP hypertensive, plan for home BP meds to start today. Remains on room air and wearing CPAP overnight. CIWA scoring. Up with stand by and walker, slightly unsteady gait. NS+20kcl at 150mL/hr. Voiding without difficulty. No BM this shift. Pt reports feeling better. Observed resting well between cares.
[2022-05-31 07:03] LABS: HCO3 VBG 30 mmol/L (21-28); Lactate* 1.7 mmol/L (0.5-1.9); PCO2 VBG 43 mmHG (40-50); PO2 VBG 31.7 mmHG (25-47); pH VBG 7.455 (7.32-7.43)
[2022-05-31 07:06] LABS: Hematocrit 40.4 % (37.0-53.0); Hemoglobin* 15.1 gm/dL (13.5-17.5); Mean Corpuscular HGB Conc 37 gm/dL (32-36); Mean Corpuscular Hemoglobin 43 pg (26-34); Mean Corpuscular Volume 116 fL (80-100); Platelet Count* 229 K/uL (140-440); Red Blood Count 3.49 m/uL (4.30-5.90); White Blood Count* 7.77 K/uL (4.50-11.00)
[2022-05-31 07:09] LABS: Slide Review Reflex No
[2022-05-31 07:20] LABS: INR 0.91 (0.91-1.10); Prothrombin Time 12.9 Seconds
[2022-05-31 07:24] LABS: Chloride* 98 mmol/L (96-114)
[2022-05-31 07:25] LABS: Potassium* 3.9 mmol/L (3.6-5.1); Sodium* 131 mmol/L (135-149)
[2022-05-31 07:27] LABS: Alkaline Phosphatase* 190 U/L (40-150); Aspartate Amino Transferase* 334 U/L (12-35); Bilirubin Direct* 1.4 mg/dL (0.0-0.5); Bilirubin Total* 2.3 mg/dL (0.1-1.5); Blood Urea Nitrogen* 7 mg/dL (7-30); Carbon Dioxide* 29 mmol/L (20-32); Creatinine* 0.7 mg/dL (0.5-1.5); Est. Creatinine Clearance* 122.04; Estimated Glomerular Filt Rate 110 ml/min; Glucose* 85 mg/dL (60-115); Phosphorus* 1.8 mg/dL (2.5-4.5); Total Protein* 7.3 g/dL (6.0-8.3)
[2022-05-31 07:28] LABS: Alanine Aminotransferase* 121 U/L (4-50); Magnesium* 2.4 mg/dL (1.5-2.6)
[2022-05-31] MEDS: NICOTINE 4 MG GUM BUCCAL ×2 (08:30→13:46)
[2022-05-31] MEDS: OMEPRAZOLE 20 MG CAPSULE DR PO (08:31)
[2022-05-31] MEDS: AMLODIPINE 10 MG TABLET PO (08:31)
[2022-05-31] MEDS: lisinopriL 20 MG TABLET 60 MG PO (08:31)
[2022-05-31] MEDS: LEVOTHYROXINE 112 MCG TABLET PO (08:31)
[2022-05-31] MEDS: THIAMINE 100 MG TABLET PO (08:31)
[2022-05-31 09:25] LABS: Free T4 Free Thyroxine* 0.56 ng/dL (0.70-1.85)
[2022-05-31] MEDS: LEVOTHYROXINE 25 MCG TABLET PO (09:55)
--- NOTE | 2022-05-31 10:01 | REH.PT ---
PT Note - No charge Reassessed patient's mobility status: - Ambulated 150 feet IND with 2WW to therapy gym - Ambulated 150 IND without use of A.D. with reciprocal pattern back to room, no instabilty or LOB - Navigated flight of stairs with reciprocal pattern IND, use of 1 rail, 3x 4 steps At this time the patient is IND with bed mobility, gait, and stair navigation. He is to be discharged from physical therapy.
[2022-05-31] MEDS: NICOTINE 21 MG PATCH 1 PATCH TRANSDERMA (10:14)
--- NOTE | 2022-05-31 15:14 | PC.NURSE ---
Discharge Note: Pt markedly improved from yesterday. States abdominal cramps have minimized to 2/10. Large soft BM this morning. Appetite has improved and pt is eating 50-75% of his meal trays. Tremor is present but improved and pt is much steadier on his feet. He is able to move around independently in his room. CIWA= 4, no Ativan required. BP's elevated, home medications restarted. Pt was discharged to home independently at 1330 in the care of his S/O Rosa. Pt and his S/O verbalized understanding of discharge instructions and follow up appointments.
--- NOTE | 2022-05-31 20:39 | PM.DS1 ---
DS: Providers Provider Time Seen by Provider: 12:30 Date Seen: 05/31/22 Date of admission: 05/30/22 07:33 Primary care physician: Maxwell Peace MD Admitting Clinician: Fredy Montano MD Consults: 05/30/22 Consult to Occupational Therapy [CONS] Routine Comment: Reason(s) for OT Consult:: Evaluate and Treat Any Restrictions?:: No Restrictions Consult to Physical Therapy [CONS] Routine Comment: Reason(s) for PT Consult:: Evaluate and Treat Any Restrictions?:: No Restrictions Attending Physician on discharge: Sonny Juarez MD Date of Discharge: 05/31/22 DS: Diagnosis Discharge Diagnosis (1) Nausea & vomiting: Status: Acute (2) Dehydration: Status: Acute (3) Alcohol withdrawal: Status: Acute (4) Hyponatremia: Status: Acute (5) Hypokalemia: Status: Acute (6) Abnormal results of liver function studies: Status: Acute Problem details: Since 2019 Concerning for evolving hepatic cirrhosis (7) Hepatic steatosis: Status: Acute (8) Chronic alcoholism: Status: Acute (9) Elevated TSH: Status: Acute Problem details: TSH 117 and free T4 of 0.56 on 05/31/2022 (10) Euthyroid sick syndrome: Status: Acute (11) Hypothyroidism: Status: Acute (12) Obstructive sleep apnea on CPAP: Status: Acute (13) Essential hypertension: Status: Acute (14) Gastroesophageal reflux disease: Status: Acute (15) Generalized anxiety disorder: Status: Acute (16) Tobacco chew use: Status: Acute (17) Abnormal CT of liver: Status: Acute Problem details: Radiologist suggests consideration be given to an MRI scan of liver in order to further define this abnormality DS: Summary Hospital Course Hospital Course: Joe Fleming is a 52 year old man presents with a 1 week history of increasing nausea and vomiting.? For a few years has been consuming at least 1 L of liquor daily.? Has had tremors with alcohol withdrawal in the past.? Denies prior seizures or delirium tremens in association with the same.? Decided to stop drinking alcohol altogether about 4-5 days prior to presentation to the hospital.? Nausea and vomiting or persistent.? Unable to eat or drink.? Denies fevers, rigors, or diaphoresis.? Has had abdominal pain particularly with vomiting.? Denies coffee-ground emesis or hematemesis.? Denies melena or hematochezia.? Denies hematuria. On initial assessment in the emergency department it is evident that the patient requires inpatient stabilization. There are no hospital beds in [facility] or [facility] across the [facility]. Patient is boarded in our emergency department for a little over a day before a bed becomes available at [facility]. During that time patient is treated with IV fluids and covered with CIWA driven protocol with lorazepam for his alcohol withdrawal. Additionally he is treated with antiemetics p.r.n.. The same level of intervention is continued once he is admitted to the hospital. In a relatively short period of time we were able to slowly advance his diet to clear liquids and then soft diet which he tolerates. The nausea and vomiting subside. Abdominal discomfort subsides. Gradually over time his weakness improves. His steadiness improves. In hospital we provide him with a nicotine patch and nicotine gum to help with his tobacco chewing disorder. We do recommend that he discontinue tobacco exposure as well over time, but for now focus on the alcohol 1st and foremost. In the course of his brief hospitalization we discussed his chronic alcoholism. I recommend in no uncertain terms that he consider strongly lifelong sobriety hereafter. I recommend that he work with his primary care physician whom he trusts to help him come up with a plan for the short-term, intermediate term, and long-term in an effort to treat his underlying alcoholism. We discussed inpatient and outpatient treatment programs, AA, individual counseling, and so forth. He commits to having this consultation with his primary care physician. He states that for certain he wants to try to maintain sobriety for at least 1 month. We discussed that sometimes all we can do is make the decision 1 day at a time. He states he is committed to this as well. Status at Discharge Functional status at discharge: independent ambulation Time Spent with Patient Time attestation: Total time spent providing and/or coordinating discharge services: Exam Narrative: Exam Narrative: Laying in bed with head elevated about 30?. Appears comfortable.? No acute distress. Tremors of both hands much less on day of discharge than when I 1st saw him 1 day prior.? Non diaphoretic. Articulate, cooperative. Alert and oriented to self, place, time, situation. Vision and hearing are grossly normal.? Conjunctiva is only mildly injected.? No icterus.? Tight oral aperture.? Moist buccal mucosa. Supple neck.? Midline trachea.? Normal thyroid.? No JVD, hepatojugular reflux, or carotid bruits. No lymphadenopathy.? Lungs clear to auscultation bibasilarly.? No wheezing or rhonchi.? Heart tones with regular rhythm, normal S1-S2, without murmur, gallop, or rub.? Abdomen with active bowel sounds, soft, nontender.? Enlarged liver. Skin is warm, dry, intact.? No jaundice, but does have some petechiae.? No other rashes. Cranial nerves 3-12 are grossly normal.? No asterixis or ataxia. Moves all 4 extremities. Independent in transfer, station, and gait. Const: Vital Signs, click to edit/add: Vital Signs - 24 hr 05/30/22 21:16 05/30/22 23:35 05/30/22 23:47 Temperature 97.6 F 97.2 F L Pulse Rate [Left A pical] Pulse Rate [Right Pulse Oximeter] 68 68 Respiratory Rate 20 20 Blood Pressure [Ri t Arm] 152/99 H Pulse Oximetry 96 Oxygen Delivery La thod Room Air 05/30/22 23:52 05/31/22 03:00 05/31/22 04:00 Temperature 97.2 F L 96.6 F L 96.6 F L Pulse Rate [Left A pical] 89 89 89 Pulse Rate [Right Pulse Oximeter] 68 66 66 Respiratory Rate 20 20 20 Blood Pressure [Ri ght Arm] 152/99 H 179/113 H 179/113 H Pulse Oximetry 96 95 [facility] Room Air 05/31/22 05:49 05/31/22 07:00 05/31/22 07:00 Temperature 96.6 F L Pulse Rate [Left A pical] 67 67 Pulse Rate [Right Pulse Oximeter] 67 Respiratory Rate 18 18 Blood Pressure [Ri t Arm] 156/100 H 150/106 H Pulse Oximetry 96 Oxygen Delivery La thod Room Air 05/31/22 08:00 05/31/22 11:00 05/31/22 12:00 Temperature 96.6 F L 97.4 F L 97.4 F L Pulse Rate [Left A pical] 67 67 67 Pulse Rate [Right Pulse Oximeter] 67 Respiratory Rate 18 18 18 Blood Pressure [Ri ght Arm] 150/106 H 150/102 H 150/102 H Pulse Oximetry 96 95 95 Oxygen Delivery Me thod Room Air Room Air Room Air DS: Data Data Completed and Pending Labs on day of discharge: Labs from last 24 hours 05/31/22 05/31/22 05/31/22 06:24 06:24 06:24 WBC RBC Hgb Hct MCV MCH MCHC Plt Count INR VBG pH 7.455 H VBG pCO2 43 VBG pO2 31.7 VBG HCO3 30 H Sodium 131 L Potassium 3.9 Chloride 98 Carbon Dioxide 29 BUN 7 Creatinine 0.7 Estimated Creat Clear 122.04 Estimated GFR 110 Glucose 85 Lactate 1.7 Calcium 8.0 L Phosphorus 1.8 L Magnesium 2.4 Total Bilirubin 2.3 H Direct Bilirubin 1.4 H AST 334 H ALT 121 H Alkaline Phosphatase 190 H Total Protein 7.3 Albumin 4.0 TSH 117.000 H Free T4 0.56 L 05/31/22 05/31/22 06:24 06:24 WBC 7.77 RBC 3.49 L Hgb 15.1 Hct 40.4 MCV 116 H MCH 43 H MCHC 37 H Plt Count 229 INR 0.91 VBG pH VBG pCO2 VBG pO2 VBG HCO3 Sodium Potassium Chloride Carbon Dioxide BUN Creatinine Estimated Creat Clear Estimated GFR Glucose Lactate Calcium Phosphorus Magnesium Total Bilirubin Direct Bilirubin AST ALT Alkaline Phosphatase Total Protein Albumin TSH Free T4 Imaging US - abdomen: Radiologist's impression: 1. Heterogeneous appearance of the liver, with masslike appearance medially. This would be better evaluated with CT of the abdomen and pelvis with contrast. 2. Gallbladder sludge and mildly thickened gallbladder wall. No pericholecystic fluid. CT scan - abdomen: Attestation: I have reviewed the pertinent imaging results. Radiologist's impression: INDICATION: Liver mass on abdominal ultrasound, right upper quadrant pain? TECHNIQUE: CT abdomen and pelvis acquired with 100 cc Isovue 370 IV contrast. COMPARISON: Abdominal ultrasound from earlier today FINDINGS: Lower chest: Patchy opacity in the left lower lobe. Small hiatal hernia. Liver: Hepatic steatosis. Ill-defined areas of hypodensity throughout the liver. Patent portal vein. 1.1 cm lymph node near the joanna hepatis on image 43 series 3. The liver measures 23 cm in length. Spleen: Unremarkable.? Pancreas: Unremarkable.? Gallbladder and bile ducts: Unremarkable.? Adrenal glands: Unremarkable.? Kidneys: Unremarkable.? GI tract: Unremarkable.? Appendix is normal.? Vascular structures: Aortoiliac calcifications. Lymph nodes: Unremarkable.? Miscellaneous: Small fat containing umbilical hernia. No free air or significant free fluid.? Pelvic Organs: Unremarkable.? Bones: Unremarkable for age.? IMPRESSION: Ill-defined areas of hypodensity in the liver on a background of hepatic steatosis. Hepatomegaly. Borderline lymph node in the joanna hepatis. Recommend MRI liver for further evaluation. Patchy opacity in the left lower lobe may represent atelectasis or infection. Small hiatal hernia. Additional Comments Additional comments: Primary care physician, Dr. Maxwell Patton, to consider MRI of the liver to further assess heterogeneous area noted on ultrasound and CT scan of the abdomen. Discharge Plan Discharge Disposition: Home, Self-Care Date of Admission: 05/30/22 07:33 Attending Provider on Discharge: Sonny Juarez Primary Care Provider: Maxwell Peace Condition: Improved Anticipated Discharge Date/Time: 05/31/22 14:30 Discharge Medications: New thiamine mononitrate (vit B1) [Vitamin B-1 (mononitrate)] 100 mg Tablet 100 mg PO DAILY 30 Days Qty: 30 0RF acetaminophen 325 mg tablet 650 mg PO QID PRNQty: 100 0RF Rx Instructions: PRN aches and pains Continued venlafaxine 150 mg capsule,extended release 24hr 150 mg PO DAILY Label Comments: TAKE ONE CAPSULE BY MOUTH EVERY DAY ALONG WITH ONE 75 MG CAPSULE amlodipine 10 mg tablet 10 mg PO DAILY lisinopril 30 mg tablet 60 mg PO DAILY Label Comments: TAKE 2 TABLETS BY MOUTH ONCE DAILY venlafaxine 75 mg capsule,extended release 24hr 75 mg PO DAILY Label Comments: TAKE ONE CAPSULE BY MOUTH EVERY DAY ALONG WITH ONE 150 MG CAPSULE lansoprazole 30 mg capsule,delayed release(DR/EC) 30 mg PO BID levothyroxine 137 mcg tablet 137 mcg PO DAILY Held ibuprofen 600 mg tablet 600 mg PO Q6H PRN Hold Instructions: Resume on 06/14/22. May resume as needed use on 06/14/2022 Label Comments: TAKE ONE TABLET BY MOUTH EVERY 6 HOURS NEEDED FOR PAIN Discharge Orders: Discharge Order (Routine); Ordered 05/31/22 Ordered By: Sonny Juarez Patient Education: Acetaminophen (By mouth), Thiamine (By mouth), Alcohol Withdrawal (GEN), Alcohol Dependence (GEN), Alcohol Use Disorder (GEN) Additional Instructions: 1. Work with Dr. Peace regarding health concerns, including concern for possible early hepatic cirrhosis, euthyroid sick syndrome, and alcohol dependence; 2. Consider re-checking TSH and Free T-4 in the next 2 months; 3. Consider support options for management of alcohol dependence, including inpatient treatment, outpatient treatment, particiaption in Alcoholic Anonymous, and counseling. Activity Level: No Restrictions and Activity as Tolerated Discharge Diet: Heart Healthy (2 gm sodium, low fat) Follow Up Appointments: Maxwell Peace MD [Primary Care Provider] - 06/02/22 10:00 am (Follow up with one of partners Pcp isnt available in time frame ) Forms: [employer] Info Instructions
== END 2022-05-31 15:28 | disposition home or self-care (01) | DRG 775 ==
LOC: ED 16:52 → MEDSURG 05-30 00:22
PROVIDERS: Family Medicine; Hospitalist; Internal Medicine; Admitting Provider Family Medicine; Emergency Provider Family Medicine; PCP Family Medicine; Visit Provider Family Medicine
DX: F10.239 Alcohol dependence with withdrawal, unspecified (principal); E86.0 Dehydration; E87.1 Hypo-osmolality and hyponatremia; E87.6 Hypokalemia; K70.0 Alcoholic fatty liver; R16.0 Hepatomegaly, not elsewhere classified; E07.81 Sick-euthyroid syndrome; R11.2 Nausea with vomiting, unspecified; R19.7 Diarrhea, unspecified; I10 Essential (primary) hypertension; F98.8 Other specified behavioral and emotional disorders with onset usually occurring in childhood and adolescence; F41.1 Generalized anxiety disorder; K21.9 Gastro-esophageal reflux disease without esophagitis; E03.9 Hypothyroidism, unspecified; E78.5 Hyperlipidemia, unspecified; F17.220 Nicotine dependence, chewing tobacco, uncomplicated
CPT/HCPCS: 36415; 74177; 76705; 80048; 80053; 80076; 80143; 80179; 80306; 81001; 82077; 82248; 82803; 83605; 83690; 83735; 84100; 84439; 84443; 84484; 85025; 85027; 85610; 85651; 86140; 87502; 87634; 87635; 93005; 94761; 97161; 97165; 97535; 99285; A9270; C9113; J1200; J1720; J2060; J2405; J3411; J3475; J7030; Q9967; S4990

== ENCOUNTER 2022-10-28 07:18 | Day surgery (SDC) | payer BC, SELFPAY ==
[2022-10-28] VITALS (15 sets, daily range): BP systolic 136–177; BP diastolic 77–101; PULSE 52–66; RESP 16–18; TEMP 36.1–36.7; O2SAT 88–97; BMI 30.9
[2022-10-28] MEDS: LACTATED RINGERS 1000 ML 1,000 ML 100 ML IV (07:30)
[2022-10-28] MEDS: SODIUM CHLORIDE 0.9 % (FLUSH) 10 ML SYRINGE IVF (08:09)
[2022-10-28] MEDS: CEFAZOLIN 2 GM INJ IVP (09:30)
--- NOTE | 2022-10-28 09:32 | W.ANESCHARGE ---
Anesthesia Charges Start Date/Time Anesthesia Start Date: 10/28/22 Anesthesia Start Time: 09:20 Stop Date/Time Anesthesia Stop Date: 10/28/22 Anesthesia Stop Time: 10:37
[2022-10-28] MEDS: BUPIVACAINE 0.25% 30 ML INJECTION (10:22)
--- NOTE | 2022-10-28 10:40 | W.ANESCHARGE ---
Anesthesia Charges Start Date/Time Anesthesia Start Date: 10/28/22 Anesthesia Start Time: 09:20 Stop Date/Time Anesthesia Stop Date: 10/28/22 Anesthesia Stop Time: 10:37
--- NOTE | 2022-10-28 10:42 | PM.GSPRC ---
Operative Note Date of procedure: 10/28/22 Pre-op diagnosis: 1. Symptomatic umbilical hernia. Post-op diagnosis: Same Type of Procedure: 1. Open umbilical hernia repair with mesh. Indications: 52-year-old male was seen in clinic with an umbilical bulge that was noted several months prior to presentation. The bulge has not been significantly changing in size but was painful. Patient described the pain as soreness and stated that he needed to push the bulge in to relieve the pain. This was worse with standing and coughing. On clinical exam patient had a well healed infraumbilical scar from his laparoscopic bilateral inguinal hernia repair. There was a grape sized umbilical bulge palpated just to the left of the umbilicus. Given patient's clinical history and his physical exam, an open umbilical hernia repair with mesh was recommended. The procedure was discussed in detail. The risks associated procedure including infection, bleeding, injury to intra-abdominal organs, and hernia recurrence were all discussed with the patient, and he agreed to proceed. Procedure Description: After discussing the risks and benefits of the procedure, the patient signed informed consent.? The operative site was marked and the patient was brought to the operating room and placed on the operating table in supine position.? Care was taken to pad the patient's pressure points.?? The patient was then intubated by anesthesia.?? The operative site was then prepped and draped in the usual sterile fashion.? A time-out was then performed. Local anesthetic was injected at the surgical site. A curvilinear skin incision was made with a scalpel just below umbilicus through a previously well-healed scar. Subcutaneous tissue was dissected with electrocautery down to the hernia sac and anterior fascia. The hernia sac was dissected off of the anterior fascia and subcutaneous fat around the fascial defect was dissected away from the fascial defect with cautery. I then developed preperitoneal space for mesh insertion. The fascial defect was approximately 1.1 cm. A small Ventralex ST mesh patch was then inserted into preperitoneal space and secured to the fascia using 0-0 Neurolon interrupted stitches. I examined my closure and no defects were identified between the fascia and the mesh. Fascia was re-approximated over the mesh with a running 2-0 Vicryl stitch. Additional local anesthetic was injected into subcutaneous tissues. An umbilicus was tacked down with interrupted 3-0 Vicryl stitches. Subdermal layer was closed with interrupted sutures using 3-0 Vicryl. Skin was closed with 4-0 Monocryl using subcuticular stitch. Steri strips were applied over the incision. I then placed a folded sterile 4x4 gauze over the incision and covered it with tape. All counts were correct at the end of the case. Patient tolerated the procedure well and was transferred to PACU without any complications. Anesthesia: GETA Surgeon: Perico Robison MD Condition: stable Disposition: PACU
--- NOTE | 2022-10-28 10:46 | SUR.OPER ---
Local Medication Administration Record Entry from 10/28/2022 at 1022 Expanse MAR not operating per IT. 10 mL 0.25% Bupivicaine plain mixed 1:1 10mL 1% Lidocaine with epinephrine [id number]. Intraoperatively at Incision Site by Dr. Robison.
== END 2022-10-28 13:10 | disposition home or self-care (01) ==
PROVIDERS: PCP Family Medicine; Visit Provider Surgery
PROC: (CPT 49591; principal; 2022-10-28 09:30)
DX: K42.9 Umbilical hernia without obstruction or gangrene (principal)
CPT/HCPCS: 49591; 00830; C1781; J0330; J0690; J1100; J1885; J2250; J2405; J2704; J3010; J3490; J7120

== ENCOUNTER 2023-03-20 17:52 | Emergency (ER) | payer BC, SELFPAY ==
[2023-03-20 18:03] VITALS: BP 165/83; PULSE 69; RESP 16; TEMP 36.8; O2SAT 95; BMI 31.0
--- NOTE | 2023-03-20 18:55 | ED_ITS ---
HPI - General Adult General Chief complaint: Laceration/Wound Stated complaint: Chainsaw lac R knee Time Seen by Provider: 03/20/23 18:11 History of Present Illness HPI narrative: Patient is a 52-year-old male was working with a chain saw cut his area just above his kneecap on the right appears to be fairly superficial. He came in to get this evaluated. He is up-to-date on most immunizations not tetanus. He has a history of liver issue, nausea vomiting GE reflux anxiety and chronic alcoholism. The patient was working on his own with cutting down a tree in his yd. The [employer] kicked back and cut his right knee. He has been able ambulate without difficulty. He needs a tetanus shot as mention. Related Data Home Medications Medication Instructions Recorded Confirmed lisinopril 30 mg tablet 60 mg PO DAILY 05/29/22 10/28/22 venlafaxine 150 mg 150 mg PO DAILY 05/29/22 10/28/22 capsule,extended release 24 hr lansoprazole 30 mg capsule,delayed 30 mg PO BID 05/30/22 10/28/22 release levothyroxine 137 mcg tablet 137 mcg PO DAILY 05/30/22 10/28/22 venlafaxine 75 mg capsule,extended 75 mg PO DAILY 05/30/22 10/27/22 release 24 hr buspirone 10 mg tablet 10 mg PO BID 10/27/22 10/28/22 fluticasone propionate 50 2 spray intranasal DAILY PRN 10/27/22 10/28/22 mcg/actuation nasal spray,suspension hydroxyzine HCl 25 mg tablet 25 mg PO Q6H PRN 10/27/22 10/28/22 mirtazapine 7.5 mg tablet 7.5 mg PO QHS 10/27/22 10/28/22 propranolol 10 mg tablet 10 mg PO TID 10/27/22 10/28/22 Previous Rx's Medication Instructions Recorded oxycodone 5 mg capsule 5 mg PO Q6H PRN pain #20 caps 10/28/22 Allergies Allergy/AdvReac Type Severity Reaction Status Date / Time Iodinated Contrast Media Allergy Severe Hives Verified 10/28/22 07:34 atorvastatin [From Lipitor] Allergy myalgia Verified 10/28/22 07:34 rosuvastatin [From Crestor] Allergy muscle Verified 10/28/22 07:34 cramping simvastatin Allergy myalgia Verified 10/28/22 07:34 Review of Systems Status of ROS: Reports: 6 or more systems reviewed and unremarkable except as noted in History and below [facility] Medical History Hepatic steatosis ?K76.0 - Fatty (change of) liver, not elsewhere classified (ICD-10) Abnormal results of liver function studies ?R94.5 - Abnormal results of liver function studies (ICD-10) Hypothyroidism ?E03.9 - Hypothyroidism, unspecified (ICD-10) Herniation of intervertebral disc between L4 and L5 ?M51.26 - Other intervertebral disc displacement, lumbar region (ICD-10) Gastroesophageal reflux disease ?K21.9 - Gastro-esophageal reflux disease without esophagitis (ICD-10) Hyperlipidemia ?E78.5 - Hyperlipidemia, unspecified (ICD-10) Attention deficit disorder ?F98.8 - Other specified behavioral and emotional disorders with onset usually occurring in childhood and adolescence (ICD-10) Generalized anxiety disorder ?F41.1 - Generalized anxiety disorder (ICD-10) Obstructive sleep apnea on CPAP ?G47.33 - Obstructive sleep apnea (adult) (pediatric) (ICD-10) ?Z99.89 - Dependence on other enabling machines and devices (ICD-10) Essential hypertension ?I10 - Essential (primary) hypertension (ICD-10) Chronic alcoholism ?F10.20 - Alcohol dependence, uncomplicated (ICD-10) Surgical History Previous back surgery ?Z98.890 - Other specified postprocedural states (ICD-10) Social History Highest level of school completed/degree received: some college, no degree Smoking Status: Current every day smoker Do you use any of these nicotine containing products: Smokeless Tobacco Second hand tobacco smoke exposure: No How often do you have a drink containing alcohol: 2-3 times a week Alcohol type: hard liquor How many standard drinks containing alcohol do you have on a typical day: 7 to 9 How often do you have six or more drinks on one occasion: Daily or almost daily AUDIT-C Alcohol total score: 10 Non-prescribed substance use: marijuana (any form) Non-prescribed substance use details: smoke- last used last night 10/27 Caffeine: Yes service: No Exam Narrative: Exam Narrative: Objective: Vital signs show slightly elevated systolic pressure His right knee shows a 5 cm laceration but it is very superficial over the lateral 3 cm of lack the more medial area of laceration does not involve deep structures did not involve the suprapatellar bursa or the bursa above the kneecap it just seems to be through adipose tissue but it does gape slightly pro cedure after sterile scrub with Betadine and Shur-Clens the wound was injected with 1% xylocaine with epinephrine for anesthesia 3-0 simple up with Ethilon sutures were placed with good skin edge approximation good hemostasis. There was no further bleeding he had good range of motion. Distal CMS was intact After careful discussion the patient has had a history of C difficile colitis, is not interested in taking antibiotics he declines these. He will get an updated Tdap. Will have suture removed in 7 days watch for redness infection. He was comfortable plan. Also suggested he get an x-ray of his knee to make sure the kneecap is intact and he declined this. Const: Vital Signs, click to edit/add: Vital Signs - 24 hr 03/20/23 18:03 Temperature 98.2 F Pulse Rate [Pulse Oximeter] 69 Respiratory Rate 16 Blood Pressure [Ri ght Upper Arm] 165/83 H Pulse Oximetry 95 Oxygen Delivery Me thod Room Air Course Vital Signs Vital signs: Initial Vital Signs Temperature 98.2 F 03/20/23 18:03 Temperature Source Temporal Artery Scan 03/20/23 18:03 Pulse Rate 69 03/20/23 18:03 Respiratory Rate 16 03/20/23 18:03 Blood Pressure 165/83 H 03/20/23 18:03 Blood Pressure Mean 110 H 03/20/23 18:03 Blood Pressure Position Sitting 03/20/23 18:03 Pulse Oximetry 95 03/20/23 18:03 Oxygen Delivery Method Room Air 03/20/23 18:03 Vital Signs Temperature 98.2 F 03/20/23 18:03 Pulse Rate 69 03/20/23 18:03 Respiratory Rate 16 03/20/23 18:03 Blood Pressure 165/83 H 03/20/23 18:03 Pulse Oximetry 95 03/20/23 18:03 Oxygen Delivery Method Room Air 03/20/23 18:03 Temperature 98.2 F 03/20/23 18:03 Pulse Rate 69 03/20/23 18:03 Respiratory Rate 16 03/20/23 18:03 Blood Pressure 165/83 H 03/20/23 18:03 Pulse Oximetry 95 03/20/23 18:03 Oxygen Delivery Method Room Air 03/20/23 18:03 Discharge Plan Discharge Clinical Impression: Knee laceration Patient Disposition: Home w/ Parent or Adult Condition: Improved Instructions: Laceration (ED) Additional Instructions: Keep the wound covered and dry for 24 hours then may shower bathe as needed, watch for redness infection return if problems or concerns. Recommend sutures out in 1 week. A problems or concerns return to the ED. Activity Level: Light activity Discharge Diet: Regular Prescriptions: No Action venlafaxine 150 mg capsule,extended release 24hr 150 mg PO DAILY Patient Comments: TAKE ONE CAPSULE BY MOUTH EVERY DAY ALONG WITH ONE 75 MG CAPSULE lisinopril 30 mg tablet 60 mg PO DAILY Patient Comments: TAKE 2 TABLETS BY MOUTH ONCE DAILY venlafaxine 75 mg capsule,extended release 24hr 75 mg PO DAILY Patient Comments: TAKE ONE CAPSULE BY MOUTH EVERY DAY ALONG WITH ONE 150 MG CAPSULE lansoprazole 30 mg capsule,delayed release(DR/EC) 30 mg PO BID levothyroxine 137 mcg tablet 137 mcg PO DAILY buspirone 10 mg tablet 10 mg PO BID fluticasone propionate 50 mcg/actuation spray,suspension 2 spray intranasal DAILY PRN Rx Instructions: administer into each nostril hydroxyzine HCl 25 mg tablet 25 mg PO Q6H PRN mirtazapine 7.5 mg tablet 7.5 mg PO QHS propranolol 10 mg tablet 10 mg PO TID oxycodone 5 mg capsule 5 mg PO Q6H PRN (Reason: pain) Qty: 20 0RF Follow Up/Referrals: Maxwell Peace MD [Primary Care Provider] - Stand Alone Forms: [employer] Info Instructions
[2023-03-20] MEDS: TETANUS/DIPHTH/PERTUSSIS 0.5 ML SYRINGE IM (19:06)
--- OUTSIDE RECORDS SUMMARY | 2023-03-20 19:07 | XMS_ITS | Continuity of Care Document ---
Author Name Unknown Organization [facility] Address [address] [address] [place] [address] Phone Care Team Providers Care Ampoule Filler Name Role Phone Coty DHILLON Lakisha Unavailable Unava ilable Allergies, Adverse Reactions, Alerts Substance Reaction Status Criticality Lawupaq-TQD-KwK Reductase Inhibitors Acti ve No Information IODINE Active No Information Medications Medication Instructions Dosage Effective Dates (start - stop) Status Comments lansoprazole 30 mg delayed release,disintegrating tablet take 1 tablet by oral route every day and place on top of the tongue where it will dissolve, then swallow 30 MG - Active amlodipine 10 mg tablet take 1 tablet by oral route every day 10 MG - Active lansoprazole 30 mg delayed release,disintegrating tablet take 1 tablet by oral route every day and place on top of the tongue where it will dissolve, then swallow 30 MG - Active levothyroxine 137 mcg capsule take 1 capsule by oral route every day 137 MCG - Active venlafaxine ER 150 mg tablet,extended release 24 hr take 1 tablet by oral route every day 150 MG - Active venlafaxine ER 75 mg tablet,extended release 24 hr take 3 tablet by oral route every day in the morning at the same time each day with food 225 MG - Active Procedures Procedure Date Offic/outpt E&m New Mod-hi Routine Serum Collection Advance Directives Directive Yes / No Effective Date File Name No Information Encounters Encounter Description Practice Location Reason(s) For Visit Diagnoses Date Provider Providers Copied on Encounter [facility], [address] [address], [place], [id number], [place] tel:[phone] [facility] No Information 3 OanhTom DHILLON Lakisha. [address] [facility], [facility] [address], [place], [id number], [place]. tel:[phone] [facility], [address] [address], [place], [id number], [place] tel:[phone] [facility] Alcoholic fatty liver Apr-0 3 Apurvaishmael JACQUIE Banuelos. [address] [facility], [facility] [address], [place], [id number], [place]. tel:[phone] Maxwell Peace MD. tel:[phone] Offic/outpt E&m [facility], [address] [address], [place], [id number], [place] tel:[phone] [facility] GI Symptoms or Concerns (chief complaint) Alcoholic fatty liver Apr-0 3 Apurvaishmael JACQUIE Banuelos. [address] [facility], [facility] [address], [place], [id number], [place]. tel:[phone] Maxwell Peace MD. tel:[phone] lting Provider: Perico Robison MD, [address] [place], [address]. tel:[phone] ring Provider: Maxwell Peace MD A, [facility] [address] [place] [address], [address]. tel:[phone] [facility], [address] [address], [place], [id number], [place] tel:[phone] [facility] No Information 3 Jose Lucio. [address] [facility], [facility] [address], [place], [id number], [place]. tel:[phone] Family History Family Member Type Diagnosis Age At Onset Father Problem Colon polyps Mother Problem Alcoholism Immunizations Vaccine Date Status Comments Influenza Nov-04-2019 administered Note: [facility] bi-d irectional interface ; Source: Other Registry Afluria Qd administered Note: [facility] bi-directional interface ; Source: Other Registry Afluria Qd administered Note: [facility] bi-directional interface ; Source: Other Registry Afluria Qd administered Note: [facility] bi-directional interface ; Source: Other Registry Afluria Qd administered Note: [facility] bi-directional interface ; Source: Other Registry Afluria Qd administered Note: [facility] bi-directional interface ; Source: Other Registry tetanus toxoid, reduced diphtheria toxoid, and acellular pertussis vaccine, adsorbed administered Note: [facility] bi-direct ional interface ; Source: Other Registry influenza virus vaccine, victorina e, attenuated, for intranasal use administered Note: [facility] C bi- directional interface ; Source: Other Registry Payers Payer name Insurance type Covered democrat ID Authoriza tion(s) No Information Social History Type Description Quantity Date Captured Comments Sex Male Smoking Status No Information Chief Complaint And Reason For Visit No Information Reason For Referral Reason For Referral No Information Plan Of Treatment Date Type Action Status Referral Ordered: Hepatic Function Panel Appointment date/timeframe: 10/30/2022 ordered Referral Ordered: CBC W/diff, Whole Blood Appointment date/timeframe: 10/30/2022 ordered History Of Present Illness Encounter Date Complaint History Of Prese nt Illness GI Symptoms or Concerns Joe (Jessica Fleming Jr. is a 52-year-old male with a PMH of alcohol use disorder, HTN, SARABJIT, hypothyroidism, reflux presenting to the clinic for consultation per his primary care provider, Dr. Maxwell Peace, regarding hernia repair and alcoholic fatty liver disease. On review, Joe was seen in the [place] emergency department on 05/31/22 for alcohol withdrawal. Per Joe, he started binge drinking 5 years ago when his and was up to a 1.75 of hard alcohol daily. He stopped drinking alcohol for 5 days at the end of April 2022, and then presented to the ED for severe withdrawal symptoms and N/V. There he was found to have elevated liver enzymes (AST 334, ALT 121) with a TSH of 117, T4 0.56. Since, his TSH has normalized with levothyroxine adjustments and he was sent for a liver MRI 07/21 showing hepatomegaly with diffuse fatty infiltration of the liver, hepatic fibrosis, and small hepatic cysts. Joe states he was able to quit drinking for 8 weeks following his ED visit, but has started drinking again to a lesser degree. Joe estimates about 5 drinks in the last 5 days, drinking up to 1/5th of a 1.75 bottle of liquor. He endorses having 1-2 drinks now to keep himself from experiencing withdrawal symptoms per the advice of his addiction psychologist. Joe states anxiety is part of his alcohol use disorder, and he is currently working with a therapist and two psychologists, which have been very helpful for him. He is seeing his Psychologist tomorrow with plan for medication to help with alcohol cessation. Per Joe, he wears his CPAP machine most nights, but has trouble falling asleep at night with his decrease in alcohol use. He rarely smokes cigarettes, but does chew tobacco daily as well as smokes marijuana. Since his hospital admission, he has started watching his diet and decreasing his carbohydrate intake significantly, and is walking more. 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 He is motivated to keep making positive lifestyle changes. Joe is hoping to undergo an umbilical hernia repair as it is causing him intermittent pain, it pops out with exertion, and is getting harder to reduce at home. He feels the pain is similar to severe gas pains, he is worried he could be at risk for incarcerated bowel. Today, he denies any GI symptoms aside from pain from his hernia. No GERD symptoms, dysphagia, vomiting, altered bowel habits, melena or hematochezia. Of note, he had negative serologic work up into cause of liver test elevation in March 2021 through with negative HBsAg, hep C antibody, , SMA, AMA, ceruloplasmin, and alpha 1 antitrypsin serum. Functional Status Date Functional Assessmen t No Information Instructions Date Instruction Additional Brock farrell 1. Lab work today2. Continue working with Therapist and Psychiatry for help with sobriety3. Eventual formal fibrosis staging of the liver once heavy alcohol use is no longer influencing results4. Follow up with me in 3 months or reach out sooner if needed5. I would advocate for umbilical hernia repair despite potential risks of liver decompensation if you have underlying cirrhosis as we discussedPatient seen and examined with Virgie Cee, [employer] Related to Alcoholic fatty liver Assessments Type Assessment Date No Information Patient Care Teams Name Effective Dates (start - stop) Status Members No Information
--- OUTSIDE RECORDS SUMMARY | 2023-03-20 19:07 | XMS_ITS | Continuity of Care Document ---
Author Name Unknown Organization Z [facility] Address [address] [place] [address] [address] [place] [address] Phone Care Team Providers Care Deposit Refund Clerk Name Role Phone Heather Izaguirre MD Unavailable Unavailable Medications Medication Instructions Dosage Effective Dates (start - stop) Status Comments Celebrex 200 mg Cap - Active Ultram 50 mg Tab 1-2 q 6-8 hours prn - Active Medrol (Noah) 4 mg Tabs in a Dose Pack - Active Procedures Procedure Date Office/outpatient visit,[facility], [facility] 2008 Postop followup visit Postop followup visit Postop followup visit Remove lumbar spine lamina, 1 seg PA Assist Remove lumbar spine lamina, 1 seg X-ray exam lower spine 2-3 views 2007 Office consultation, low Office[place], [facility] [place] Advance Directives Directive Yes / No Effective Date File Name No Information Encounters Encounter Description Practice Location Reason(s) For Visit Diagnoses Date Provider Providers Copied on Encounter Z [facility], [address] [place], [place] [address], [place], [address], [place] tel:[phone] [facility] No Information Nov- 6-200 9 Dmitriy Romero. [facility], [address], [place], [id number], [place]. tel:[phone] Office/outpa tient visit,est, low [facility], [address], [place], [address], [place] tel:[phone] [facility] No Information Alexandre-0 8-200 9 Mehbod Amir. [facility], [address], [place], [place], [id number], [place]. tel:[phone] Referring Provider: Meliton Vinson, [employer] [address] [place] [address], [address]. tel:[phone] [facility], [address] [facility] [address] [facility] [address], [place], [address], [place] tel:[phone] [facility] No Information Apr-0 7-200 8 Mehbod Amir. [facility], [address] [place] [address] [address], [place], [id number], [place]. tel:[phone] Referring Provider: Meliton Vinson, [employer] [address] [place] [address], [address]. tel:[phone] [facility], [address] [place] [address], [address], [place] tel:[phone] [facility] No Information Mar-2 7-200 8 No Information [facility], [address], [place], [address], [place] tel:[phone] [facility] No Information Mar-1 7-200 8 Mehbod Amir. [facility], [address] [place] [address] [address], [place], [place], [id number], [place]. tel:[phone] Referring Provider: Meliton Vinson, [employer] [address] [place] [address], [address]. tel:[phone] [facility], [address], [place], [address], [place] tel:[phone] [facility] No Information Feb-0 4-200 8 Mehbod Amir. [facility], [address], [place], [id number], [place]. [phone] Referring Provider: Meliton Vinson, [employer] [address], [address]. tel:[phone] [facility], [address], [place], [address], [place] [phone] [facility] No Information 200 8 Mehbod Amir. [facility], [address], [place], [place], [id number], [place]. [phone] Referring Provider: Meliton Vinson, [employer] [address], [address]. tel:[phone] Office consultation , low [facility], [address] [place], [place] [address], [place], [address], [place] tel:[phone] [facility] No Information 200 8 Mehbod Amir. [facility], [address], [place], [id number], [place]. [phone] Referring Provider: Meliton Vinson, [address], [address]. tel:[phone] [facility]pa [place]ient [facility] [facility], [address] [place], [place] [address], [place], [address], [place] tel:[phone] [facility] No Information 7 Shayna Ortega. [facility], [address] [place] [address], [address], [place], [place], [id number], [place]. tel:[phone] Referring Provider: Meliton Vinson, [address], [address]. tel:[phone] Family History Family Member Type Diagnosis Age At Onset No Information Payers Payer name Insurance type Covered constitution party ID Authoriza tion(s) No Information Social History Type Description Quantity Date Captured Comments Sex Male Smoking Status No Information Chief Complaint And Reason For Visit No Information Reason For Referral Reason For Referral No Information History Of Present Illness Encounter Date Complaint History Of Prese nt Illness No Information Functional Status Date Functional Assessmen t No Information Instructions Date Instruction Additional Infor mation No Information Assessments Type Assessment Date No Information Patient Care Teams Name Effective Dates (start - stop) Status Members No Information
== END 2023-03-20 19:14 | disposition home or self-care (01) ==
LOC: ED 19:05
PROVIDERS: Emergency Provider Family Medicine; PCP Family Medicine
DX: S81.011A Laceration without foreign body, right knee, initial encounter (principal); W29.3XXA Contact with powered garden and outdoor hand tools and machinery, initial encounter
CPT/HCPCS: 12002; 90471; 90715; 99284

== ENCOUNTER 2023-05-13 19:10 | Emergency (ER) | payer BC, SELFPAY ==
[2023-05-13] VITALS (10 sets, daily range): BP systolic 102–123; BP diastolic 58–84; PULSE 65–90; RESP 16–18; TEMP 36.1–36.7; O2SAT 89–99; BMI 29.5
--- NOTE | 2023-05-13 20:45 | ED.ALCOHOL ---
HPI - Alcohol General Chief Complaint: Alcohol/Intoxication Stated Complaint: PCP said needs ER detox or will be in withdrawals Time Seen by Provider: 05/13/23 20:38 History of Present Illness HPI narrative: This 53-year-old male comes in because of alcohol intoxication and withdrawal symptoms. He was into his psychologist today who stated that he needed to come here for help because of withdrawal symptoms. The patient states that he did not drink alcohol prior to 5 years ago but since then has had trouble with alcohol. He has been drinking vodka a daily for the past 5 days or more and states that he has to keep drinking in order to avoid withdrawal symptoms. He he knows that this is a vicious koyuk that will not improved. He is interested in detox. He does report upper epigastric abdominal pain. Related Data Home Medications Medication Instructions Recorded Confirmed lisinopril 30 mg tablet 60 mg PO DAILY 05/29/22 05/13/23 venlafaxine 150 mg 150 mg PO DAILY 05/29/22 05/13/23 capsule,extended release 24 hr lansoprazole 30 mg capsule,delayed 30 mg PO BID 05/30/22 05/13/23 release levothyroxine 137 mcg tablet 137 mcg PO DAILY 05/30/22 05/13/23 venlafaxine 75 mg capsule,extended 75 mg PO DAILY 05/30/22 05/13/23 release 24 hr buspirone 10 mg tablet 10 mg PO BID 10/27/22 05/13/23 fluticasone propionate 50 2 spray intranasal DAILY PRN 10/27/22 05/13/23 mcg/actuation nasal spray,suspension mirtazapine 7.5 mg tablet 7.5 mg PO QHS 10/27/22 05/13/23 propranolol 10 mg tablet 10 mg PO TID 10/27/22 05/13/23 Allergies Allergy/AdvReac Type Severity Reaction Status Date / Time Iodinated Contrast Media Allergy Severe Hives Verified 05/13/23 20:35 atorvastatin [From Lipitor] Allergy Mild myalgia Verified 05/13/23 20:35 rosuvastatin [From Crestor] Allergy Mild muscle Verified 05/13/23 20:35 cramping simvastatin Allergy Mild myalgia Verified 05/13/23 20:35 Review of Systems Status of ROS Reports: 10 or more systems reviewed and unremarkable except as noted in History and below Narrative Constitutional: No fevers, no weight gain or loss. Eyes: No discharge. No vision changes. HENT: No congestion, no sore throat, no ear pain. Cardiovascular: No chest pain, no palpitations. Respiratory: No shortness of breath, no wheezes, no cough. Gastrointestinal: No vomiting, no diarrhea. Upper epigastric abdominal pain. Genitourinary: No dysuria, no hematuria. Musculoskeletal: Normal range of motion. Skin: No rashes, no pruritis. Neurological: No dizziness, weakness, sensory change, speech change. Endo/Heme/Allergies: No bruising or bleeding. No polydipsia. Pysch: no suicidality. Alcohol abuse. All other systems reviewed and are negative. [facility] Medical History Hepatic steatosis ?K76.0 - Fatty (change of) liver, not elsewhere classified (ICD-10) Abnormal results of liver function studies ?R94.5 - Abnormal results of liver function studies (ICD-10) Hypothyroidism ?E03.9 - Hypothyroidism, unspecified (ICD-10) Herniation of intervertebral disc between L4 and L5 ?M51.26 - Other intervertebral disc displacement, lumbar region (ICD-10) Gastroesophageal reflux disease ?K21.9 - Gastro-esophageal reflux disease without esophagitis (ICD-10) Hyperlipidemia ?E78.5 - Hyperlipidemia, unspecified (ICD-10) Attention deficit disorder ?F98.8 - Other specified behavioral and emotional disorders with onset usually occurring in childhood and adolescence (ICD-10) Generalized anxiety disorder ?F41.1 - Generalized anxiety disorder (ICD-10) Obstructive sleep apnea on CPAP ?G47.33 - Obstructive sleep apnea (adult) (pediatric) (ICD-10) ?Z99.89 - Dependence on other enabling machines and devices (ICD-10) Essential hypertension ?I10 - Essential (primary) hypertension (ICD-10) Chronic alcoholism ?F10.20 - Alcohol dependence, uncomplicated (ICD-10) Surgical History Previous back surgery ?Z98.890 - Other specified postprocedural states (ICD-10) Social History Highest level of school completed/degree received: some college, no degree Smoking Status: Current every day smoker Do you use any of these nicotine containing products: Smokeless Tobacco Second hand tobacco smoke exposure: No How often do you have a drink containing alcohol: 2-3 times a week Alcohol type: hard liquor How many standard drinks containing alcohol do you have on a typical day: 7 to 9 How often do you have six or more drinks on one occasion: Daily or almost daily AUDIT-C Alcohol total score: 10 Non-prescribed substance use: marijuana (any form) Non-prescribed substance use details: smoke- last used last night 10/27 Caffeine: Yes service: No Exam Narrative: Exam Narrative: Constitutional: Well-developed, well-nourished, no acute distress. HEENT: Normocephalic, atraumatic. Neck: Normal range of motion. Nontender. Supple. Heart: Regular. No murmurs. Normal rate. Intact distal pulses. Lungs: Clear to auscultation. No chest discomfort. No wheezes, rhonchi, or rales. Abdomen: Normal bowel sounds. Upper epigastric tenderness. No rebound tenderness. Genitalia: Deferred. Back: No midline tenderness. Normal range of motion. Extremities: Normal range of motion. No injury. Skin: Intact. No rash. Warm. No erythema or pallor. Neurologic: No altered sensation. No weakness. Alert and oriented. Psychiatric: No suicidality. No anxiety or depression. No insomnia. Nursing notes and vitals signs are reviewed. Const: Vital Signs, click to edit/add: Vital Signs - 24 hr 05/13/23 20:25 05/13/23 20:32 05/13/23 20:54 Temperature 98.0 F Pulse Rate 65 Pulse Rate [Right Pulse Oximeter] 90 Respiratory Rate 18 16 Blood Pressure 110/79 Blood Pressure [Ri ght Upper Arm] 123/80 Pulse Oximetry 99 99 93 Oxygen Delivery Me thod Room Air 05/13/23 21:01 05/13/23 21:31 Temperature Pulse Rate 74 73 Pulse Rate [Right Pulse Oximeter] Respiratory Rate 16 16 Blood Pressure 102/69 118/58 L Blood Pressure [Ri ght Upper Arm] Pulse Oximetry 97 93 Oxygen Delivery Me thod Course Vital Signs Vital signs: Initial Vital Signs Pulse Oximetry 99 05/13/23 20:25 Vital Signs Pulse Oximetry 99 05/13/23 20:25 Temperature 98.0 F 05/13/23 20:32 Pulse Rate 73 05/13/23 21:31 Respiratory Rate 16 05/13/23 21:31 Blood Pressure 118/58 L 05/13/23 21:31 Pulse Oximetry 93 05/13/23 21:31 Oxygen Delivery Method Room Air 05/13/23 20:32 Medications Administered Medications: Discontinued Medications Generic Name Dose Route Start Last Admin Trade Name Tasha PRN Reason Stop Dose Admin Lorazepam 1 mg 05/13/23 20:43 05/13/23 20:50 Lorazepam 2 Mg/Ml Inj IV 05/13/23 20:44 1 mg ONCE ONE Administration MDM - Alcohol MDM Narrative Medical decision making narrative: This patient comes in with alcohol intoxication and withdrawal symptoms with any interruption in his taking of alcohol. At the time of my visit he is not showing signs of withdrawal. An IV was established and labs were drawn. The patient did receive Ativan 1 mg and Zofran 4 mg intravenously. Lab results returned with no sign of pancreatitis. He does have some change in his liver enzymes and bilirubin related to alcohol. He is interested in detox and arrangements are made for him to transfer to [facility] for ongoing management. Lab Data Labs: Lab Results 05/13/23 Range/Units 20:45 WBC 8.59 (4.50-11.00) K/uL RBC 3.60 L (4.30-5.90) m/uL Hgb 15.0 (13.5-17.5) gm/dL Hct 40.8 (37.0-53.0) % MCV 113 H (80-100) fL MCH 42 H (26-34) pg MCHC 37 H (32-36) gm/dL RDW Coeff of Vladislav 12.7 (11.5-15.5) % Plt Count 249 (140-440) K/uL Neut % (Auto) 47.9 (42.0-72.0) % Lymph % (Auto) 43.1 (20-44) % Harnett % (Auto) 5.1 (0.0-11.0) % Eos % (Auto) 2.1 (0.0-7.0) % Baso % (Auto) 1.0 (0.0-3.0) % Neut # (Auto) 4.11 (1.7-7.0) K/uL Lymph # (Auto) 3.70 H (0.90-2.90) K/uL Harnett # (Auto) 0.40 (0.00-0.90) K/UL Eos # (Auto) 0.18 (0.00-0.50) K/uL Baso # (Auto) 0.09 (0.00-0.30) K/uL Abs Immat Gran (auto) 0.07 (0.00-0.30) K/uL Imm/Tot Granulo (auto) 0.8 % Sodium 136 (135-149) mmol/L Potassium 3.0 L (3.6-5.1) mmol/L Chloride 95 L (96-114) mmol/L Carbon Dioxide 25 (20-32) mmol/L Anion Gap 16 H (7-15) mEq/L BUN 6 L (7-30) mg/dL Creatinine 0.9 (0.5-1.5) mg/dL Estimated Creat Clear 93.83 Estimated GFR 101 ml/min Glucose 107 (60-115) mg/dL Calcium 9.0 (8.4-10.6) mg/dL Total Bilirubin 1.8 H (0.1-1.5) mg/dL Direct Bilirubin 0.6 H (0.0-0.5) mg/dL AST 131 H (12-35) U/L ALT 75 H (4-50) U/L Alkaline Phosphatase 138 (40-150) U/L Total Protein 8.0 (6.0-8.3) g/dL Albumin 4.4 (3.3-5.0) g/dL Lipase 166 (23-300) U/L Ethyl Alcohol 0.15 H (0.01-0.03) % Discharge Plan Discharge Clinical Impression: Abnormal results of liver function studies, Alcohol withdrawal, Alcoholic intoxication Patient Disposition: Xfer Other Condition: Unchanged Prescriptions: No Action venlafaxine 150 mg capsule,extended release 24hr 150 mg PO DAILY Patient Comments: TAKE ONE CAPSULE BY MOUTH EVERY DAY ALONG WITH ONE 75 MG CAPSULE lisinopril 30 mg tablet 60 mg PO DAILY Patient Comments: TAKE 2 TABLETS BY MOUTH ONCE DAILY venlafaxine 75 mg capsule,extended release 24hr 75 mg PO DAILY Patient Comments: TAKE ONE CAPSULE BY MOUTH EVERY DAY ALONG WITH ONE 150 MG CAPSULE lansoprazole 30 mg capsule,delayed release(DR/EC) 30 mg PO BID levothyroxine 137 mcg tablet 137 mcg PO DAILY buspirone 10 mg tablet 10 mg PO BID fluticasone propionate 50 mcg/actuation spray,suspension 2 spray intranasal DAILY PRN Rx Instructions: administer into each nostril mirtazapine 7.5 mg tablet 7.5 mg PO QHS propranolol 10 mg tablet 10 mg PO TID Follow Up/Referrals: Maxwell Peace MD [Primary Care Provider] - Stand Alone Forms: [facility] Info Instructions
[2023-05-13] MEDS: LORazepam 2 MG/ML inj 1 MG IV (20:50)
[2023-05-13 21:08] LABS: Basophils Absolute Auto 0.09 K/uL (0.00-0.30); Eosinophils Absolute Auto 0.18 K/uL (0.00-0.50); Eosinophils Percent Auto 2.1 % (0.0-7.0); Hematocrit 40.8 % (37.0-53.0); Immature Granulocytes Abs Auto 0.07 K/uL (0.00-0.30); Immature Granulocytes Pct Auto 0.8 %; Lymphocytes Percent Auto 43.1 % (20-44); Mean Corpuscular HGB Conc 37 gm/dL (32-36); Mean Corpuscular Hemoglobin 42 pg (26-34); Mean Corpuscular Volume 113 fL (80-100); Monocytes Percent Auto 5.1 % (0.0-11.0); Neutrophils Absolute Auto 4.11 K/uL (1.7-7.0); Neutrophils Percent Auto 47.9 % (42.0-72.0); Platelet Count* 249 K/uL (140-440); RDW Coefficient of Variation % 12.7 % (11.5-15.5); White Blood Count* 8.59 K/uL (4.50-11.00)
[2023-05-13 21:09] LABS: Slide Review Reflex No
[2023-05-13 21:21] LABS: Albumin* 4.4 g/dL (3.3-5.0)
[2023-05-13 21:22] LABS: Chloride* 95 mmol/L (96-114); Sodium* 136 mmol/L (135-149)
[2023-05-13 21:24] LABS: Anion Gap 16 mEq/L (7-15); Bilirubin Direct* 0.6 mg/dL (0.0-0.5); Bilirubin Total* 1.8 mg/dL (0.1-1.5); Carbon Dioxide* 25 mmol/L (20-32); Creatinine* 0.9 mg/dL (0.5-1.5); Est. Creatinine Clearance* 93.83; Estimated Glomerular Filt Rate 101 ml/min
[2023-05-13 21:25] LABS: Alanine Aminotransferase* 75 U/L (4-50); Alkaline Phosphatase* 138 U/L (40-150); Aspartate Amino Transferase* 131 U/L (12-35); Blood Urea Nitrogen* 6 mg/dL (7-30); Glucose* 107 mg/dL (60-115); Lipase* 166 U/L (23-300)
[2023-05-13 21:26] LABS: Ethanol* 0.15 % (0.01-0.03)
--- OUTSIDE RECORDS SUMMARY | 2023-05-13 21:42 | XMS_ITS | Continuity of Care Document ---
Author Name Unknown Organization [facility] Address [address] [address] [place] [address] Phone Care Team Providers Care Casing Puller Name Role Phone Coty DHILLON Lakisha Unavailable Unava ilable Allergies, Adverse Reactions, Alerts Substance Reaction Status Criticality Oadavda-UYO-HzL Reductase Inhibitors Acti ve No Information IODINE [...] Encounter [facility], [address] [address], [place], [id number], [place] tel:[phone] [facility] No Information 3 OanhTom DHILLON Lakisha. [address] [facility], [facility] [address], [place], [id number], [place]. tel:[phone] [facility], [address] [address], [place], [id number], [place] tel:[phone] [facility] Alcoholic fatty liver Apr-0 3 Apurvaishmael JACQUIE Banuelos. [address] [facility], [facility] [address], [place], [id number], [place]. tel:[phone] Maxwell Peace MD. tel:[phone] Offic/outpt E&m [facility] JACQUIE, [address] [address], [place], [id number], [place] tel:[phone] [facility] GI Symptoms or Concerns (chief complaint) Alcoholic fatty liver Apr-0 3 Apurvaishmael JACQUIE Banuelos. [address] [facility], [facility] [address], [place], [address], [place]. tel:[phone] Maxwell Peace MD. tel:[phone] lting Provider: Perico Robison MD, [address] [place], [address]. tel:[phone] ring Provider: Maxwell Peace MD A, [facility] [place] [address], [address]. tel:[phone] [facility], [address] [address], [place], [id number], [place] tel:[phone] [facility] No Information 3 Jose Lucio. [address] [facility], [facility] [address], [place], [address], [place]. tel:[phone] Family History Family Member Type Diagnosis [...] Registry Payers Payer name Insurance type Covered alliance party ID Authoriza tion(s) No Information Social [...] On review, Joe was seen in the [place] emergency department on 05/31/22 for alcohol withdrawal. [...] discussedPatient seen and examined with Virgie Cee, CUTTING ROOM SUPERVISOR-S Related to Alcoholic fatty liver Assessments Type Assessment Date No Information Patient Care Teams Name Effective Dates (start - stop) Status Members No Information
--- OUTSIDE RECORDS SUMMARY | 2023-05-13 21:42 | XMS_ITS | Continuity of Care Document ---
Author Name Unknown Organization [facility] Address [address] [place] [address] [address] [place] [address] Phone Care Team Providers Care Hat And Cap Opener Name Role Phone Heather Izaguirre MD Unavailable Unavailable Medications Medication Instructions Dosage Effective Dates (start - stop) Status Comments Ultram 50 mg Tab 1-2 q 6-8 hours prn - Active Celebrex 200 mg Cap - Active Medrol (Noah) 4 mg Tabs in a Dose Pack - Active Procedures Procedure Date Office/outpatient visit,[facility], [facility] 2008 Postop followup visit Postop followup visit Postop followup visit Remove lumbar spine lamina, 1 seg PA Assist Remove lumbar spine lamina, 1 seg X-ray exam lower spine 2-3 views 2007 Office consultation, low Office/outpatient visit,[facility], [facility] Advance Directives Directive Yes / No Effective Date File Name No Information Encounters Encounter Description Practice Location Reason(s) For Visit Diagnoses Date Provider Providers Copied on Encounter Z [facility], [address] [place], [place] [address], [place], [address], [place] tel:[phone] [facility] No Information 6-200 9 Dmitriy Romero. [facility], [address], [place], [id number], [place]. tel:[phone] Office/outpa tient visit,est, low [facility], [address], [place], [address], [place] tel:[phone] [facility] No Information Alexandre-0 8-200 9 Mehbod Amir. [facility], [address], [place], [place], [id number], [place]. tel:[phone] Referring Provider: Meliton Vinson, GRAYL [address] [place] [address], [address]. tel:[phone] [facility], [address], [place], [address], [place] tel:[phone] [facility] No Information Apr-0 7-200 8 Mehbod Amir. [facility], [address] [place] [address] [address], [place], [id number], [place]. tel:[phone] Referring Provider: Meliton Vinson, GRAYL [address] [place] [address], [address]. tel:[phone] [facility], [address] [place] [address], [address], [place] tel:[phone] [facility] No Information Mar-2 7-200 8 No Information [facility], [address], [place], [address], [place] tel:[phone] [facility] No Information Mar-1 7-200 8 Mehbod Amir. [facility], [address] [place] [address] [address], [place], [place], [id number], [place]. tel:[phone] Referring Provider: Meliton Vinson, GRAYL [address] [place] [address], [address]. tel:[phone] [facility], [address], [place], [address], [place] tel:[phone] [facility] No Information Feb-0 4-200 8 Mehbod Amir. [facility], [address], [place], [id number], [place]. [phone] Referring Provider: Meliton Vinson, [place] [address], [address]. tel:[phone] [facility], [address], [place], [address], [place] [phone] [facility] No Information 200 8 Mehbod Amir. [facility], [address], [place], [place], [address], [place]. [phone] Referring Provider: Meliton Vinson, [place] [address], [address]. tel:[phone] Office consultation , low [facility], [address] [place], [place] [address], [place], [address], [place] tel:[phone] [facility] No Information 200 8 Mehbod Amir. [facility], [address], [place], [id number], [place]. [phone] Referring Provider: Meliton Vinson, [address], [address]. tel:[phone] Office/outpa tient visit,[facility], [address] [place], [place] [address], [place], [address], [place] tel:[phone] [facility] No Information 7 Shayna Ortega. [facility], [address] [place] [address], [address], [place], [place], [id number], [place]. tel:[phone] Referring Provider: Meliton Vinson, [employer], [address]. tel:[phone] Family History Family Member Type Diagnosis Age At Onset No Information Payers Payer name Insurance type Covered libertarian ID Authoriza tion(s) No Information Social History [...]
[2023-05-13 21:44] LABS: PCR FLU A Negative PCR FLU A (Negative); PCR FLU B Negative PCR FLU B (Negative)
[2023-05-13 21:56] LABS: SARS PCR* Negative SARS-CoV-2 (Negative)
[2023-05-13] MEDS: ONDANSETRON 2 MG/ML inj 4 MG IVP (21:56)
== END 2023-05-13 23:13 | disposition other institution (70) ==
PROVIDERS: Emergency Provider Emergency Medicine Emergency Medical Services; PCP Family Medicine
DX: F10.129 Alcohol abuse with intoxication, unspecified (principal); F10.239 Alcohol dependence with withdrawal, unspecified; R94.5 Abnormal results of liver function studies
CPT/HCPCS: 36415; 80048; 80076; 82077; 83690; 84443; 85025; 87631; 94761; 96374; 96375; 99284; J2060; J2405

== ENCOUNTER 2024-09-09 10:32 | Outpatient (CLI) | payer BC, SELFPAY ==
--- NOTE | 2024-09-09 12:23 | P.ANES_ITS ---
Anesthesia Charges Start Date/Time Anesthesia Start Date: 09/09/24 Anesthesia Start Time: 12:00 Stop Date/Time Anesthesia Stop Date: 09/09/24 Anesthesia Stop Time: 12:24 Coding CPT Codes CPT Codes: ANES LWR INTST SCR COLSC - 80508 ([id number]) P3 - PATIENT W/SEVERE SYS DISEASE, QX - BIG DATA ENGINEER SVC W/ MD MED DIRECTION, QK - DUST COLLECTOR 2-4 CNCRNT ANES PROC
--- NOTE | 2024-09-09 12:23 | W.ANESCHARGE ---
Anesthesia Charges Start Date/Time Anesthesia Start Date: 09/09/24 Anesthesia Start Time: 12:00 Stop Date/Time Anesthesia Stop Date: 09/09/24 Anesthesia Stop Time: 12:24 Coding CPT Codes CPT Codes: ANES LWR INTST SCR COLSC - 64930 ([id number]) P3 - PATIENT W/SEVERE SYS DISEASE, QX - POWERHOUSE MECHANIC HELPER SVC W/ MD MED DIRECTION, QK - SPRING WINDER 2-4 CNCRNT ANES PROC
--- NOTE | 2024-09-09 12:39 | P.ANES_ITS ---
Anesthesia Charges Start Date/Time Anesthesia Start Date: 09/09/24 Anesthesia Start Time: 12:00 Stop Date/Time Anesthesia Stop Date: 09/09/24 Anesthesia Stop Time: 12:24 Coding CPT Codes CPT Codes: ANES LWR INTST SCR COLSC - 20495 ([id number]) P3 - PATIENT W/SEVERE SYS DISEASE, QK - MANAGER AGRICULTURAL 2-4 CNCRNT ANES PROC, QX - COMMUNICATION CONSULTANT SVC W/ MD MED DIRECTION
--- NOTE | 2024-09-09 12:39 | W.ANESCHARGE ---
Anesthesia Charges Start Date/Time Anesthesia Start Date: 09/09/24 Anesthesia Start Time: 12:00 Stop Date/Time Anesthesia Stop Date: 09/09/24 Anesthesia Stop Time: 12:24 Coding CPT Codes CPT Codes: ANES LWR INTST SCR COLSC - 99294 ([id number]) P3 - PATIENT W/SEVERE SYS DISEASE, QK - QUALITY SYSTEMS TECHNICIAN 2-4 CNCRNT ANES PROC, QX - SUPERINTENDENT CONCRETE MIXING PLANT SVC W/ MD MED DIRECTION
== END 2024-09-09 10:33 | disposition home or self-care (01) ==
LOC: OP CLINIC 10:34
PROVIDERS: PCP Family Medicine; Visit Provider Internal Medicine Gastroenterology
DX: Z12.11 Encounter for screening for malignant neoplasm of colon (principal); Z86.0101 Personal history of adenomatous and serrated colon polyps
CPT/HCPCS: 00812; 45378; J2704